=== PATIENT | female | born 1940 | race Caucasian/White ===

== ENCOUNTER 2017-09-08 08:04 | Outpatient (CLI) | payer MEDICARE | END 2017-09-08 08:05 | disposition home or self-care (01) | LOC: BICMAMMO 08:04 | PROVIDERS: ATTEND Internal Medicine | DX: Z53.9 Procedure and treatment not carried out, unspecified reason (principal) ==

== ENCOUNTER 2018-02-05 21:13 | Emergency (ER) | payer MEDICARE ==
[~2018-02-05 21:13] MED LIST: ISOVUE-370 76%-LOCM 1 ML ONE
[2018-02-05 22:18] LABS: #Eosinphils 0.1 thou/uL (0.0-0.7); #Lymphocytes 0.2 thou/uL (1.20-3.40); #Monocytes 0.3 thou/uL (0.11-0.59); #Neutrophils 6.3 thou/uL (1.40-6.50); %Basophils 0.5 % (0.0-1.0); %Eosinophils 0.9 % (0.0-10.0); %Lymphocytes 3.1 % (21.0-51.0); %Monocytes 3.9 % (0.0-10.0); %Neutrophils 91.6 % (42.0-75.0); Hemoglobin 15.2 g/dL (12.0-16.0); Mean Corpuscular HGB CONC 34.5 g/dL (32.0-36.0); Mean Corpuscular Hemoglobin 33.2 pg (27.0-31.0); Mean Corpuscular Volume 96.2 fl (81.0-99.0); Platelet Count 176 thou/uL (130-400); Red Blood Cell (RBC) Count 4.57 mill/uL (4.20-5.40); White Blood Cell (WBC) Count 6.8 thou/uL (4.8-10.8)
[2018-02-05] MEDS ORDERED: Metoclopramide HCl 10 MG/2 ML VIAL ONE (22:31)
[2018-02-05] MEDS ORDERED: diphenhydrAMINE 50 MG/ML VIAL ONE (22:31)
[2018-02-05 22:40] LABS: ALT (SGPT) 12 U/L (8-55); AST (SGOT) 19 U/L (5-34); Albumin 3.8 g/dL (3.4-4.8); Alkaline Phosphatase 96 U/L (40-150); Anion Gap 13 mmol/L (10-20); BUN (Urea Nitrogen) 16 mg/dL (9.8-20.1); Bilirubin, Total 2.4 mg/dL (0.2-1.2); Calc. Creatinine Clearance 0 mL/min (70-130); Calcium 9.4 mg/dL (7.8-10.44); Carbon Dioxide 25 mmol/L (23-31); Chloride 99 mmol/L (98-107); Estimated GFR-MDRD 57; Globulin 3.1 g/dL (2.4-3.5); Glucose 185 mg/dL (83-110); Magnesium 1.7 mg/dL (1.6-2.6); Protein, Total 6.9 g/dL (6.0-8.3); Sodium 133 mmol/L (136-145)
[2018-02-05 22:45] LABS: CKMB 0.4 ng/mL (0-6.6); Troponin I Less than 0.010 ng/mL (< 0.028)
--- NOTE | 2018-02-05 23:25 | CT ---
HISTORY: Diverticulitis. Difficulty walking. Vomiting and diarrhea since yesterday. Contrast enhanced CT images of the abdomen and pelvis is obtained after administration of IV contrast . The lung bases are unremarkable. No evidence of free intraperitoneal air seen. The liver and spleen are unremarkable. A tiny hiatal hernia is present. Some mild mesenteric fat stra nding is seen. There is also some mildly enlarged mesenteric lymph nodes present. The gallbladder is within normal limits. The pancreas and adrenal glands are unremarkable. The kidneys are unremarkable. Some mitral annular calcifications seen. No evidence of periaortic lymphadenopathy seen. Bilateral origin renal artery vascular calcifications seen. No dilated loops of small bowel seen. There is colonic diverticulosis without evidence of obvious diverticulitis. IMPRESSION: 1. Colonic diverticulosis. No evidence of bowel obstruction or ileus seen. 2. Mildly enlarged mesenteric lymph nodes and mesenteric fat stranding. POS: [facility]
[2018-02-06] MEDS ORDERED: Ondansetron ODT 8 MG TAB ONE (00:01)
[2018-02-06 00:33] LABS: Bilirubin Negative (Negative); Blood, Urine Negative (Negative); Clarity CLEAR (Clear); Glucose, Urine (Dipstick) Negative (Negative); Leukocyte Negative (Negative); Nitrite Negative (Negative); Protein, Urine (Dipstick) Negative (Neg-Trace); pH, Urine 5.5 (5.0-9.0)
[2018-02-06 00:39] LABS: Specific Gravity, Urine Greater than 1.060 (1.002-1.036)
--- NOTE | 2018-02-07 07:29 | RAD ---
AP VIEW CHEST 02/05/18 HISTORY: Nausea, vomiting. AP view chest demonstrates the lungs to be well aerated. Minimal pulmonary vascular congestion is see n. No evidence of effusions or pneumonia seen. IMPRESSION: Mild pulmonary vascular congestion, otherwise unremarkable AP view chest. POS: [facility]
== END 2018-02-06 02:03 | disposition home or self-care (01) ==
LOC: ERS 21:13
DX: E86.0 Dehydration (principal); R11.2 Nausea with vomiting, unspecified; G20 Parkinson's disease; E11.9 Type 2 diabetes mellitus without complications; E78.5 Hyperlipidemia, unspecified; I10 Essential (primary) hypertension; E11.43 Type 2 diabetes mellitus with diabetic autonomic (poly)neuropathy; K31.84 Gastroparesis; Z79.82 Long term (current) use of aspirin; Z79.4 Long term (current) use of insulin; Z79.899 Other long term (current) drug therapy
CPT/HCPCS: 36415; 51701; 71045; 74177; 80053; 81003; 82248; 82553; 83605; 83735; 83880; 84484; 85025; 87040; 87086; 87149; 93005; 96365; 96375; A4353; J1200; J2765

== ENCOUNTER 2018-05-04 14:44 | Outpatient (CLI) | payer MEDICARE ==
--- NOTE | 2018-05-04 17:01 | MRI ---
MRI BRAIN WITHOUT CONTRAST: 05/04/18 HISTORY: Gait disorder. Patient has Parkinson's. COMPARISON: None. TECHNIQUE: Brain MRI is performed without intravenous gadolinium administration. Multisequential and multiplanar imaging is performed. FINDINGS: No hemorrhage on the axial gradient echo sequence. Calvarium has a normal T1 marrow signal intensity. Midline brain parenchymal structures are unremarkable. No parenchymal mass, mass effect or midline shift. Brain volume is age appropriate. Cortical thomas-whi te matter differentiation is preserved. Ventricles and sulci are patent and symmetric. Central arteri al flow voids are maintained. Absent restricted diffusion. Minimal opacification of the inferior right mastoid air cells. Left mastoid air cells and the sinuses are adequately aerated. Minimal mucosal thickening of the right maxillary sinus. IMPRESSION: 1. Age appropriate atrophy. 2. Chronic small vessel ischemic change of the white matter are present. 3. Absence restricted diffusion. No acute infarct. 4. Minimal opacification of the inferior right mastoid air cells. POS: [facility]
== END 2018-05-04 14:45 | disposition home or self-care (01) ==
LOC: SCSMRI 14:44
PROVIDERS: ATTEND Psychiatry & Neurology Neurology
DX: R26.89 Other abnormalities of gait and mobility (principal); H74.8X1 Other specified disorders of right middle ear and mastoid
CPT/HCPCS: 70551

== ENCOUNTER 2018-07-01 15:16 | Emergency (ER) | payer MEDICARE ==
--- NOTE | 2018-07-01 16:31 | RAD ---
TWO VIEW CHEST: 07/01/18 HISTORY: Cough and congestion. COMPARISON: 01/25/13. The lungs appear clear of infiltrate. Vascular markings are within normal range. Heart size is upper normal but stable. Degenerative spine changes. the thoracic vertebra maintain height. IMPRESSION: No evidence of acute infiltrate. POS: [facility]
== END 2018-07-01 17:45 | disposition home or self-care (01) ==
LOC: SCSER 15:16
DX: J06.9 Acute upper respiratory infection, unspecified (principal); B30.9 Viral conjunctivitis, unspecified; E11.43 Type 2 diabetes mellitus with diabetic autonomic (poly)neuropathy; K31.84 Gastroparesis; E78.5 Hyperlipidemia, unspecified; I10 Essential (primary) hypertension; G20 Parkinson's disease; Z79.82 Long term (current) use of aspirin; Z79.899 Other long term (current) drug therapy; Z79.891 Long term (current) use of opiate analgesic
CPT/HCPCS: 71046

== ENCOUNTER 2019-09-19 22:22 | Inpatient (IN) | payer MEDICARE ==
[2019-09-19] MEDS ORDERED: niCARdipine 25 MG in Sodium Chloride 0.9% 250 ML 240 ML IVPB SCH (22:45)
[2019-09-19] MEDS ORDERED: fentaNYL Citrate/PF 2,000 MCG in Sodium Chloride 0.9% 60 ML IV SCH (22:51)
--- NOTE | 2019-09-19 23:16 | CT ---
EXAM: CT Brain WO Con PROVIDED CLINICAL HISTORY: Subdural hematoma COMPARISON: Examination performed earlier same date at [facility] FINDINGS: Redemonstration of acute right subdural hematoma, which appears larger than on comparison study. This measures about 14 mm in maximal thickness on the current exam. Mixed low density within this hemorrhage may reflect hyperacute hemorrhage. Shift of the midline structures by about 5 mm is redemo nstrated. There is mass effect upon the right lateral ventricle which was not present on the prior study. Increased density is seen adjacent to the tentorium right of midline may also reflect extra-axial hem orrhage. There is hyperdensity adjacent to the anterior falx inferiorly left of midline may reflect a small amount of subdural blood. Additional significant interval change with respect to the prior ex amination is not apparent. IMPRESSION: 1. Increasing acute/hyperacute right cerebral convexity subdural hematoma. Findings communicated to Maikol Kraus 11:12 PM 09/19/2019. 2. Smaller foci of extra-axial hemorrhage are suspected as described.
[2019-09-19 23:35] LABS: Actual Bicarbonate (HCO3a) 22.7 mEq/L (22-28); Analyzer IN Cardio ER; Base Excess (BEa) -1.5 mEq/L (-2.0 to +3.0); CO2 Tension 36.7 mmHg (35.0-45.0); Calcium, Ionized 1.16 mmol/L (1.12-1.30); Carboxyhemoglobin (COHb) 0.1 gm% (0.0-3.0); Hemoglobin (Hb) 15.2 g/dL (12.0-16.0); O2 Tension (PaO2) 79.6 mmHg (> 60.0); Potassium - ABG Lab 3.44 mmol/L (3.70-5.30); pH, Arterial 7.41 (7.35-7.45)
[2019-09-19 23:40] LABS: ALV-art Gradient 159.725 (0-20); Puncture Site RRA
[2019-09-20 00:09] LABS: INR-International Normal Ratio 1.1; PTT 27.4 SEC (22.9-36.1)
[2019-09-20] MEDS ORDERED: DISCONTINUE PREVIOUS NARCOTIC PAIN MEDICATIONS AND BENZODIAZEPINES FS SCH (00:25)
[2019-09-20] MEDS ORDERED: Propofol BOLUS 1,000 MG/100 ML VIAL IV PRN (00:25)
[2019-09-20] MEDS ORDERED: Fentanyl BOLUS 250 ML IVPB PRN (00:25)
[2019-09-20] MEDS ORDERED: Sodium Chloride 0.9% 20 ML ONE (00:44)
[2019-09-20] MEDS ORDERED: Lidocaine 0.5%/Epinephrine 1:200,000 50 ml Vial ONE (00:44)
[2019-09-20] MEDS ORDERED: Bacitracin Zinc Ointment 30 gm TUBE ONE (00:44)
[2019-09-20] MEDS ORDERED: Thrombin 5000 UNITS/5 ML VIAL ONE (00:44)
[2019-09-20] MEDS ORDERED: Fentanyl 100 MCG/2 ML VIAL ONE (00:50)
[2019-09-20] MEDS ORDERED: Mannitol 12.5 GM/50 ML IV SCH (01:00)
[2019-09-20] MEDS ORDERED: ADMIXTURE FEE IV SCH ×2 (01:00→01:15)
[2019-09-20] MEDS ORDERED: [UNRECOGNIZED DRUG - OTHER] IV SCH ×2 (01:00→01:15)
[2019-09-20] MEDS ORDERED: HUM PROTHROMBIN CPLX IV SCH ×2 (01:00→01:15)
[2019-09-20 01:57] LABS: #Eosinphils 0.2 thou/uL (0.0-0.7); #Monocytes 1.1 thou/uL (0.11-0.59); #Neutrophils 9.5 thou/uL (1.40-6.50); %Basophils 0.2 % (0.0-1.0); %Eosinophils 1.2 % (0.0-10.0); %Lymphocytes 15.3 % (21.0-51.0); %Monocytes 8.7 % (0.0-10.0); %Neutrophils 74.7 % (42.0-75.0); Hemoglobin 13.2 g/dL (12.0-16.0); Mean Corpuscular HGB CONC 35.6 g/dL (32.0-36.0); Mean Corpuscular Hemoglobin 33.7 pg (27.0-31.0); Mean Corpuscular Volume 94.8 fL (78.0-98.0); Mean Platelet Volume 8.7 fL (7.4-10.4); Platelet Count 172 thou/uL (130-400); Red Blood Cell (RBC) Count 3.92 mill/uL (4.20-5.40); White Blood Cell (WBC) Count 12.8 thou/uL (4.8-10.8)
[2019-09-20] MEDS ORDERED: Levofloxacin 500 mg/D5W 100 ml Premix Bag ONE (01:57)
[2019-09-20] MEDS ORDERED: Clindamycin/D5W 900 mg/50 ml Premix Bag ONE (01:57)
[2019-09-20 02:17] LABS: Anion Gap 15 mmol/L (10-20); BUN (Urea Nitrogen) 10 mg/dL (9.8-20.1); Calc. Creatinine Clearance 72 mL/min (70-130); Calcium 8.3 mg/dL (7.8-10.44); Carbon Dioxide 19 mmol/L (23-31); Chloride 100 mmol/L (98-107); Estimated GFR-MDRD 65; Glucose 312 mg/dL (83-110); Potassium 3.4 mmol/L (3.5-5.1); Sodium 131 mmol/L (136-145)
[2019-09-20] MEDS ORDERED: Mag-Al 1200 mg/1200 mg/30 ML UDCUP PO PRN (02:27)
[2019-09-20] MEDS ORDERED: Docusate 100 MG CAP PO PRN (02:27)
[2019-09-20] MEDS ORDERED: Bisacodyl 10 MG SUPP PR PRN (02:27)
[2019-09-20] MEDS ORDERED: Milk Of Magnesia 30 ML UDCUP PO PRN (02:27)
[2019-09-20] MEDS ORDERED: Sodium Chloride 0.9% 1,000 ML IV SCH ×2 (02:30→12:52)
[2019-09-20] MEDS ORDERED: levETIRAcetam In NaCl (Iso-Os) 1,000 MG in Premix Bag 1 BAG IVPB SCH (03:00)
--- NOTE | 2019-09-20 04:49 | HP ---
This is Gibran Hu PA-C dictating a report for Sean Hitchcock MD. This is a 50-minute initial patient evaluation, of which greater than 50% of the exam was spent in counseling and coordinating the patient's care. Remainder of the exam was spent in review of the patient's medical records, formulation of treatment plan, review of appropriate imaging studies. CHIEF COMPLAINT: Status post fall with acute on chronic subdural hematoma. HISTORY OF PRESENT ILLNESS: Ms. Boles is an 79-year-old female, who is a transfer from [facility] for the above complaints. Apparently, the patient is on Eliquis for history of atrial fibrillation. She has had some balance and walking difficulties and also has a history of normal-pressure hydrocephalus and has undergone a CONTRACT ADMINISTRATOR shunt placement by Dr. Guillermo Van in April 2019. Given her balance and gait disturbances, she has been in a wheelchair. Apparently, earlier tonight, the patient's was pushing her in the wheelchair when the wheelchair caught on something and the patient fell out of the wheelchair. She was subsequently brought to [facility], where she eventually became less responsive and was intubated. Again, given the acuity of her decline, the patient was transferred to [facility]. Repeat head CT was done and compared to the previous head CT and showed expansion of right frontal temporoparietal subdural hematoma. There was mass effect and midline shift on the repeat CT scan. The patient is unable to provide any type of history as she is intubated and her family helps to provide some history as well as review of her medical records. PHYSICAL EXAMINATION: The patient is E1 M5 V1 to make her GCS 17. Her pupils are equal and reactive bilaterally roughly 3 mm in size. She does not formally follow commands, though localizes on the right and withdraws from pain on the left. She does have a gag reflex present. IMPRESSION DIAGNOSIS: Status post fall with acute subdural hematoma, on Eliquis. PLAN: I have discussed the patient's case and imaging with Dr. Hitchcock and the decision was made after a very lengthy discussion of risks and benefits to proceed to the operating room for the patient to undergo a right frontal craniotomy with acute subdural evacuation. It should be noted that the patient's CONTRACT ADMINISTRATOR shunt setting is at 0.5, that originally was supposed to be at 1.5. This was reprogrammed intraoperatively back to 1.5. Nonetheless, Neurosurgery will admit the patient with appropriate medical consult given the emergent need to go to the operating room. We will follow along with the patient, but again plan to proceed with emergent subdural hematoma evacuation in the OR. Job ID: [id number] MTDD
[2019-09-20] MEDS ORDERED: Dextrose 50% Abboject 50 ML SYRINGE SLOW IVP PRN (07:39)
[2019-09-20] MEDS ORDERED: Dextrose 5% in Water 1,000 ML IV PRN (07:39)
--- NOTE | 2019-09-20 08:25 | CT ---
CT BRAIN WITHOUT CONTRAST: COMPARISON: 09/19/2019. HISTORY: Followup intracranial hemorrhage. TECHNIQUE: Multiple contiguous axial images were obtained in a CT of the brain without contrast. FINDINGS: There has been an interval craniotomy with evacuation of the majority of the right subdural hematoma. Pneumocephalus is seen in the operative bed. A right posterior FIRST AID NURSE shunt is seen with its tip in th e right lateral ventricle. A surgical drain is seen in the subdural space. A small amount of residu al blood is seen on the parietal convexity and temporal convexity. There is a small amount of blood in the posterior aspect of the lateral ventricles. No significant midline shift or downward herniati on is seen at this time. The paranasal sinuses and mastoid air cells are well aerated. IMPRESSION: 1. Interval evacuation of subdural hematoma, with the product of a small amount of residual blood. 2. There is a right posterior ventriculostomy catheter with its tip in the right lower ventricle. I nterval development of a small amount of intraventricular hemorrhage. POS: [facility]
[2019-09-20] MEDS ORDERED: FLU VACC TS2019-20(65YR UP)/PF 180 MCG/0.5 ML SYRINGE IM ONE (09:00)
[2019-09-20] MEDS: niCARdipine 50 MG in Sodium Chloride 0.9% 250 ML 230 ML IVPB SCH ×2 (10:31→15:56)
[2019-09-20] MEDS: Pantoprazole 40 MG VIAL IVP SCH (10:36)
[2019-09-20] MEDS: Clindamycin/D5W 900 MG in Premix Bag 1 BAG IVPB SCH ×2 (10:36→18:09)
[2019-09-20] MEDS ORDERED: PROPOFOL 200 MG/20 ML VIAL ONE (11:14)
[2019-09-20] MEDS ORDERED: Rocuronium Bromide 10 MG/ML (10ML VIAL) ONE (11:14)
[2019-09-20] MEDS: HumaLOG 300 UNITS/3 ML VIAL SC PRN ×3 (11:31→22:10)
--- NOTE | 2019-09-20 11:36 | PRG ---
DATE OF SERVICE: 09/20/2019 Ms. Boles is not even 12 hours out from her right-sided trauma craniotomy for supratentorial acute subdural hematoma evacuation. We also adjusted her right-sided Strata programmable shunt from 0.5 to 1.5 to try and promote brain expansion. Head CT this morning is satisfactory. I drained both in the subdural and subgaleal spaces, been effective in reducing reaccumulation. She remains intubated and does localize more briskly in her right side than her left, but we are now trying to wean off her propofol. I should note that she remains on high-dose nicardipine for hypertension. Job ID: [id number]
--- NOTE | 2019-09-20 12:21 | PDOC.HOSPP ---
- Subjective Encounter Date: 09/20/19 Encounter Time: 10:15 non-verbal Subjective: pt has mechanical fall, she was on elliquis, she was found with SDH, she underwent burhall evacuation, post procedure she is on ventilator, family bedside, we are consulted for medical management. - Objective Vital Signs & Weight: Vital Signs (12 hours) Temp Pulse Resp BP Pulse Ox 09/20/19 10:32 97 09/20/19 07:21 83 09/20/19 07:00 98.4 F 09/20/19 06:00 98.3 F 22 H 09/20/19 04:03 76 122/57 L 09/20/19 04:00 22 H 09/20/19 01:00 98.2 F 09/20/19 00:46 98 Weight Weight 206 lb 2.115 oz Most Recent Monitor Data Heart Rate from ECG 99 NIBP 125/56 NIBP BP-Mean 79 Respiration from ECG 21 SpO2 99 I&O: 09/19/19 09/20/19 09/21/19 06:59 06:59 06:59 Intake Total 974.3 Output Total 620 535 Balance 354.3 -535 Result Diagrams: 09/20/19 01:40 09/20/19 01:40 Additional Labs: Accuchecks 09/20/19 06:50 POC Glucose 381 H Radiology Reviewed by me: Yes (CT brain) EKG Reviewed by me: Yes (NSR) Hospitalist ROS - Review of Systems ROS unobtainable: due to endotracheal tube - Medication Medications: Active Medications Generic Name Dose Route Start Last Admin Trade Name Freq PRN Reason Stop Dose Admin Clindamycin Phosphate/Dextrose 50 mls @ 100 mls/hr 09/20/19 10:00 09/20/19 10 :36 900 mg/ Device IVPB 50 mls 0200,1000,1800 JED Administration Sodium Chloride 1,000 mls @ 50 mls/hr 09/20/19 02:30 09/20/19 03:15 Normal Saline 0.9% IV 1,000 mls .Q20H JED Administration Insulin Human Lispro 0 units 09/20/19 07:39 09/20/19 11:31 Humalog SC 10 units .MODERATE SLIDING SC PRN Administration Moderate Correctional Scale Pantoprazole Sodium 40 mg 09/20/19 09:00 09/20/19 10:36 Protonix IVP 40 mg DAILY JED Administration Sodium Chloride 10 ml 09/20/19 09:00 09/20/19 10:37 Flush - Normal Saline IVF 10 ml Q12HR JED Administration - Exam General Appearance: NAD Eye: anicteric sclera ENT - other findings: surgical site with dressing, drain in place Neck: no JVD, no thyromegaly, no lymphadenopathy Heart: RRR, no murmur, no gallops, no rubs Respiratory: CTAB, no wheezes, no rales, no ronchi Gastrointestinal: soft, non-distended, normal bowel sounds Extremities: no cyanosis, no clubbing, no edema Hosp A/P (1) Subdural hematoma Code(s): S06.5X9A - TRAUM SUBDR HEM W LOC OF UNSP DURATION, INIT Status: Acute (2) Acute respiratory failure with hypoxia Code(s): J96.01 - ACUTE RESPIRATORY FAILURE WITH HYPOXIA Status: Acute (3) Hyponatremia Code(s): E87.1 - HYPO-OSMOLALITY AND HYPONATREMIA Status: Acute (4) Hypokalemia Code(s): E87.6 - HYPOKALEMIA Status: Acute (5) Dyslipidemia Code(s): E78.5 - HYPERLIPIDEMIA, UNSPECIFIED Status: Chronic (6) Chronic anticoagulation Code(s): Z79.01 - JAIL (CURRENT) USE OF ANTICOAGULANTS Status: Chronic (7) PAF (paroxysmal atrial fibrillation) Code(s): I48.0 - PAROXYSMAL ATRIAL FIBRILLATION Status: Chronic (8) GERD (gastroesophageal reflux disease) Code(s): K21.9 - GASTRO-ESOPHAGEAL REFLUX DISEASE WITHOUT ESOPHAGITIS Status: Chronic Qualifiers: Esophagitis presence: without esophagitis Qualified Code(s): K21.9 - Gastro -esophageal reflux disease without esophagitis (9) Hypertension Code(s): I10 - ESSENTIAL (PRIMARY) HYPERTENSION Status: Chronic Qualifiers: Hypertension type: essential hypertension Qualified Code(s): I10 - Essential (primary) hypertension (10) Obesity (BMI 30-39.9) Code(s): E66.9 - OBESITY, UNSPECIFIED Status: Chronic (11) Diabetes type 2, controlled Code(s): E11.9 - TYPE 2 DIABETES MELLITUS WITHOUT COMPLICATIONS Status: Chronic Qualifiers: Diabetes mellitus long term care social worker insulin use: with long term care social worker use Diabetes mellitus complication status: without complication Qualified Code(s): E11.9 - Type 2 diabetes mellitus without complications; Z79.4 - [facility] (current) use of insulin - Plan old records reviewed/req, plan discussed w/ family 09/20/19 continue ventilator management as per pulmonary post operative care as per surgeon regarding diabetes, hyperglycemia protocol treatment started discussed with family bedside medication reviewed and continue to provide symptomatic treatment
[2019-09-20] MEDS ORDERED: Potassium Chloride 20 MEQ TAB PO SCH (13:15)
[2019-09-20] MEDS ORDERED: Magnesium Sulfate 4 GM in Sodium Chloride 0.9% 250 ML 250 ML IVPB SCH (13:15)
[2019-09-20] MEDS ORDERED: Insulin Glargine 20 UNITS in Pre-Filled Syringe SC SCH (13:15)
[2019-09-20] MEDS ORDERED: Carvedilol 6.25 MG TAB PO SCH (13:15)
[2019-09-20] MEDS ORDERED: Furosemide 40 MG/4 ML VIAL SLOW IVP SCH (13:15)
[2019-09-20] MEDS ORDERED: Lisinopril 5 MG TAB PO SCH (13:15)
[2019-09-20] MEDS ORDERED: Potassium Chloride 40 MEQ in Sodium Chloride 0.9% 250 ML 250 ML IVPB SCH (13:15)
[2019-09-20] MEDS ORDERED: Polyethylene Glycol 3350 17 GM Packet PER TUBE PRN (13:27)
[2019-09-20] MEDS: Carvedilol 6.25 MG TAB PO SCH (13:57)
[2019-09-20] MEDS ORDERED: Amiodarone HCl 150 MG in Dextrose 5% in Water 100 ML IVPB SCH (14:45)
--- NOTE | 2019-09-20 14:45 | OP ---
DATE OF PROCEDURE: 09/20/2019 CELLARS SUPERVISOR: Qiana Blackwell PA-C A modifier 57 should be added to this surgery as the decision to operate was made on the day I saw the patient. Ms. Boles is an 79-year-old woman, who fell out of her wheelchair today and was on Eliquis. She sustained a large acute subdural hematoma. This appears to be somewhat superimposed on a much smaller chronic subdural hematoma versus hygroma, not unusual to be seen following the shunting for normal-pressure hydrocephalus. The family wished that aggressive measures be taken and as such, we recommended craniotomy for acute subdural hematoma evacuation. As such we brought her emergently to the operating room. PRE-PROCEDURE DIAGNOSES: Large right acute subdural hematoma with midline shift, mass effect, neurologic decline. POSTPROCEDURE DIAGNOSES: Large right acute subdural hematoma with midline shift, mass effect, neurologic decline. PROCEDURE PERFORMED: Right frontotemporoparietal craniotomy for acute subdural hematoma evacuation. DESCRIPTION OF PROCEDURE: After informed consent was obtained from the patient's family, she was brought to the OR. Proper patient, pause, and identification were carried out. Her head was turned to the left and the right hemicranial region was sterilely cleansed, prepared, and draped following the clipping of hair. A question-praful incision was drawn out and the scalp reflected following sterile cleansing, preparation, and draping and opening of the wound. The temporalis muscle was reflected with it, keila holes were fashioned, bone flap turned via craniotomy. The dura was opened. Acute subdural hematoma was evacuated. I felt as if we had excellent decompression of the brain. Drains were placed in the subdural and subgaleal space. The bone flap was reapproximated and closed with titanium plates and screws and the wound closed in anatomic layers. The patient was kept intubated. Job ID: [id number]
--- NOTE | 2019-09-20 15:32 | CON ---
DATE OF CONSULTATION: 09/20/2019 SERVICE: Pulmonary Medicine. REASON FOR CONSULTATION: ICU patient. HISTORY OF PRESENT ILLNESS: The patient is an 79-year-old white female with past medical history significant for severe debility secondary to Parkinson disease. She is basically not able to do anything on her own. She is not independent in most of her ADLs. She requires assistance to do things like dress, get out of bed, and is not really ambulatory. She refuses to use a wheelchair, however. She has a walker with a seat on it and mandates that her family push her around in that device. Her was pushing her and came into contact with a curb. The device toppled over, and he landed on top of her. At that time, she was in her usual state of health. She was brought to the emergency department for evaluation because of altered mentation. The CT of the brain was consistent with subdural hematoma. She cannot provide any additional elements of the history as she is currently sedated and intubated. PAST MEDICAL HISTORY: 1. Parkinson disease. 2. Type 2 diabetes mellitus. 3. Gastroesophageal reflux disease. 4. Gastroparesis. 5. Diverticulosis. 6. Endometriosis. 7. Dyslipidemia. 8. Hypertension. 9. Dementia. PAST SURGICAL HISTORY: 1. Hemorrhoidectomy. 2. Endometriosis surgery. 3. Breast biopsy. 4. Colonoscopy. 5. EGD. 6. Appendectomy. 7. Right index finger surgery. 8. Bilateral cataract surgery. 9. Tonsillectomy. FAMILY HISTORY: Noncontributory. SOCIAL HISTORY: Negative for alcohol, tobacco, or illicit drug use. ALLERGIES: NO KNOWN DRUG ALLERGIES. MEDICATIONS: List of her inpatient medications was reviewed. No specific updates were made at this time. REVIEW OF SYSTEMS: This cannot be obtained as the patient is currently intubated and sedated. PHYSICAL EXAMINATION: VITAL SIGNS: Afebrile, pulse 99, blood pressure 139/46, respirations 22, saturation 97%, on 30% FiO2 and a PEEP of 5. GENERAL: The patient is intubated and sedated. HEENT: Normocephalic and atraumatic. Sclerae white. Conjunctivae pink. Oral mucosa is moist without lesions. LUNGS: Crackly. No prolonged expiratory phase or wheezing is appreciated. HEART: Normal rate, regular. ABDOMEN: Soft, nontender, and nondistended. Bowel sounds are positive. MUSCULOSKELETAL: No cyanosis or clubbing. Diffuse 1 to 2+ pitting is present throughout. NEUROLOGIC: The patient withdraws from noxious stimuli in all 4 extremities. Her pupils are equal, round, and reactive, and she has a very strong drive to breathe. At this point, she is under the influence of a little sedation and is not following any commands. LABORATORY DATA: WBC 12.8, hemoglobin 13.2, and platelets 172,000. INR 1.1. PH 7.41, pCO2 of 37, PO2 of 80. Sodium 131 and significantly downtrending, potassium 3.4. Basic metabolic profile is otherwise unremarkable. Leukocyte esterase is positive. There are some white blood cells, and 4+ bacteria. Previous MATT was abnormal. IMAGING: CT of the head demonstrates status post craniotomy and evacuation of hematoma. An external ventricular drain is also in place. ASSESSMENT: 1. Acute hypoxic respiratory failure. 2. Traumatic subdural hematoma, status post craniotomy and evacuation with external ventricular drain in place, postop day 1. 3. Parkinson disease with dementia. 4. Debility, advanced. DISCUSSION AND PLAN: I will hold the sedation. We will give her a spontaneous breathing trial. If she meets neurologic criteria, extubation will be considered. I will check her electrolytes tomorrow morning and replace potassium today. IV fluids will be interrupted, and I will provide her with a dose of Lasix as she is significantly volume up. CRITICAL CARE TIME: 30 minutes. Job ID: [id number] MTDD
[2019-09-20] MEDS: Amiodarone HCl 450 MG in Dextrose 5% in Water 250 ML IVPB SCH (15:56)
[2019-09-20] MEDS: Lisinopril 5 MG TAB PO SCH (20:38)
[2019-09-20] MEDS ORDERED: levETIRAcetam 500 MG in Sodium Chloride 0.9% 100 ML IVPB SCH (21:00)
[2019-09-20] MEDS: Propofol 1,000 MG/100 ML VIAL IV PRN (22:04)
[2019-09-21] MEDS: Acetaminophen 325 MG TAB PO PRN ×2 (00:39→09:27)
[2019-09-21] MEDS: Amiodarone HCl 450 MG in Dextrose 5% in Water 250 ML IVPB SCH ×2 (01:04→15:48)
[2019-09-21] MEDS: Clindamycin/D5W 900 MG in Premix Bag 1 BAG IVPB SCH ×3 (01:05→17:37)
[2019-09-21 03:38] LABS: #Lymphocytes 0.9 thou/uL (1.20-3.40); #Monocytes 1.3 thou/uL (0.11-0.59); #Neutrophils 8.1 thou/uL (1.40-6.50); %Basophils 0.3 % (0.0-1.0); %Eosinophils 0.1 % (0.0-10.0); %Lymphocytes 8.3 % (21.0-51.0); %Monocytes 12.6 % (0.0-10.0); %Neutrophils 78.7 % (42.0-75.0); Hemoglobin 12.2 g/dL (12.0-16.0); Mean Corpuscular HGB CONC 34.2 g/dL (32.0-36.0); Mean Corpuscular Volume 93.5 fL (78.0-98.0); Mean Platelet Volume 9.3 fL (7.4-10.4); Platelet Count 171 thou/uL (130-400); RBC Distribution Width 12.4 % (11.5-14.5); White Blood Cell (WBC) Count 10.2 thou/uL (4.8-10.8)
[2019-09-21 03:43] LABS: Hemoglobin A1c 8.5 % (4.0-6.0)
[2019-09-21 04:01] LABS: ALT (SGPT) 23 U/L (8-55); AST (SGOT) 17 U/L (5-34); Albumin 3.2 g/dL (3.4-4.8); Alkaline Phosphatase 68 U/L (40-110); Anion Gap 14 mmol/L (10-20); BUN (Urea Nitrogen) 15 mg/dL (9.8-20.1); Bilirubin, Total 1.7 mg/dL (0.2-1.2); Calc. Creatinine Clearance 47 mL/min (70-130); Calcium 8.4 mg/dL (7.8-10.44); Carbon Dioxide 19 mmol/L (23-31); Chloride 108 mmol/L (98-107); Estimated GFR-MDRD 36; Globulin 2.7 g/dL (2.4-3.5); Glucose 273 mg/dL (83-110); Potassium 3.7 mmol/L (3.5-5.1); Protein, Total 5.9 g/dL (6.0-8.3); Sodium 137 mmol/L (136-145)
--- NOTE | 2019-09-21 07:29 | PRG ---
DATE OF SERVICE: 09/21/2019 SERVICE: Pulmonary Medicine. INTERVAL HISTORY: Overnight, the patient had some rhythmic jerking spells that only involved her left face. They were short-lived. She is nonresponsive for the most part. She cannot provide any additional elements of the history. She had a low-grade temperature last night, and oxygen requirements and heart rate have both crept up overnight. Otherwise, there has been no interval change to her condition. PHYSICAL EXAMINATION: VITAL SIGNS: Afebrile, pulse 103, blood pressure 131/40, respirations 29, saturation 95%, currently on room air. GENERAL: The patient is intubated. She is on some sedation. HEENT: Normocephalic. The head is wrapped. Subdural drains are in place. HEART: Normal rate. Regular. LUNGS: Decent air entry. There is no prolonged expiratory phase. Extensive rhonchi are present, but no wheezing or crackles are appreciated. HEART: Tachycardic. Regular. ABDOMEN: Soft, nontender, nondistended. Bowel sounds are positive. MUSCULOSKELETAL: No cyanosis or clubbing. There is trace pitting in the bilateral lower extremities. NEUROLOGIC: She has some withdrawal in the bilateral lower extremities with noxious stimuli, though this just may be an exaggerated crossed extensor reflex. With noxious stimuli to the upper extremities, she does not move. Pupillary response is present with light, and she overbreathes the ventilator comfortably. She does not have a cough or gag with stimulation. She does not. She does not spontaneously open her eyes, or attend. LABORATORY DATA: WBC 10.2, hemoglobin 12.2, platelets 171,000. Creatinine 1.39 and gently uptrending. Basic metabolic profile is otherwise unremarkable. Total bilirubin 1.7. DISCUSSION AND PLAN: 1. Acute hypoxic respiratory failure. 2. Traumatic subdural hematoma, status post craniotomy and evacuation with external drain in place, postop day 2. 3. Parkinson disease with dementia. 4. Debility, advanced. DISCUSSION AND PLAN: Lasix will be interrupted. We will get a respiratory culture as she has significant secretions there. For the rhythmic jerking of the left face, we will get an EEG to make certain she is not having any seizure activity. Palliative Care consultation will be placed, this patient is unlikely to make any meaningful recovery. Even under the best of circumstances, she was completely unable to participate with physical therapy. As such, moving forward with aggressive care maybe a moot point. We will discuss this with the family through time. Critical Care will follow. CRITICAL CARE TIME: 30 minutes. Job ID: [id number]
[2019-09-21] MEDS ORDERED: Lactated Ringer's 500 ML IV SCH (07:30)
[2019-09-21] MEDS: Lorazepam 2 MG/ML VIAL SLOW IVP SCH ×3 (07:30→13:56)
[2019-09-21] MEDS: Lorazepam 2 MG/ML VIAL SLOW IVP PRN ×2 (07:46→13:02)
[2019-09-21] MEDS ORDERED: SODIUM CHLORIDE 0.9% IVPB SCH (08:15)
[2019-09-21] MEDS ORDERED: FOSPHENYTOIN SODIUM IVPB SCH (08:15)
[2019-09-21] MEDS: Sodium Chloride 0.9% 1,000 ML IV SCH (09:00)
[2019-09-21] MEDS ORDERED: Furosemide 40 MG/4 ML VIAL SLOW IVP SCH (09:00)
[2019-09-21] MEDS: Glimepiride 4 MG TAB PO SCH (09:24)
[2019-09-21] MEDS: Carvedilol 6.25 MG TAB PO SCH ×2 (09:24→16:33)
[2019-09-21] MEDS: Lisinopril 5 MG TAB PO SCH ×2 (09:26→21:30)
[2019-09-21] MEDS: Insulin Glargine 20 UNITS in Pre-Filled Syringe SC SCH (09:26)
[2019-09-21] MEDS: Pantoprazole 40 MG VIAL IVP SCH (09:27)
--- NOTE | 2019-09-21 09:42 | CT ---
CT BRAIN WITHOUT CONTRAST: HISTORY: Intracerebral hemorrhage. Seizures. FINDINGS: No significant interval changes seen since the exam of the previous day. POS: [facility]
--- NOTE | 2019-09-21 10:17 | ULT ---
EXAM: Bilateral lower extremity venous Doppler US HISTORY: bilateral lower extremity edema and impaired mobility, recent surgery FINDINGS: Grayscale, color-flow, Doppler evaluation, spectral analysis of the bilateral lower extremities venou s structures is performed with 2-D imaging. The bilateral common femoral, superficial femoral, popliteal, posterior tibial, proximal greater saphenous and profunda femoral veins are imaged. There is normal luminal compressibility, flow, and augmentation in the visualized deep venous structu res of the bilateral lower extremities. IMPRESSION: No evidence of a deep vein thrombosis in either lower extremity.
--- NOTE | 2019-09-21 10:25 | PRG ---
DATE OF SERVICE: 09/21/2019 Ms. Boles is now postoperative day #2 from right-sided frontotemporal craniotomy for acute subdural hematoma evacuation and readjustment of her ventriculoperitoneal shunt from 0.5 to 1.5. This morning, her head CT remained satisfactory. Her subdural drain output has become mostly serous and as such, we will remove that given the higher output and her head CT demonstrating no worrisome reaccumulation of blood. She was on Eliquis preoperatively. Unfortunately, despite prophylactic levetiracetam and not at all unusual in this situation given the patient's poor prognosis and age, she has developed now seizures involving her mouth with left gaze deviation, consistent again with a right hemispheric seizure. I have aborted these at this point with levetiracetam and we will load her with 20 mg/kg of fosphenytoin and I continued 300 mg nightly of fosphenytoin. We will discontinue her Keppra. We will obtain an ultrasound of the lower extremities as well. She remains with poor prognosis given her age and premorbid condition of dementia. I have discussed her care with Dr. Melara. Job ID: [id number]
[2019-09-21] MEDS ORDERED: levETIRAcetam 500 MG/100 ML PREMIX BAG ONE (10:53)
--- NOTE | 2019-09-21 12:06 | PDOC.HOSPP ---
- Subjective Encounter Date: 09/21/19 Encounter Time: 07:00 Subjective: pt is on vent, she had seizure today, loaded with dilantin, no overall improvement seen - Objective Vital Signs & Weight: Vital Signs (12 hours) Temp Pulse Resp BP 09/21/19 11:28 93 115/39 L 09/21/19 09:26 116 H 133/42 L 09/21/19 09:24 132/44 L 09/21/19 07:55 111 H 130/41 L 09/21/19 06:00 29 H 09/21/19 04:18 102 H 09/21/19 04:00 99.1 F 31 H 09/21/19 02:00 29 H Weight Weight 206 lb 2.115 oz Most Recent Monitor Data Heart Rate from ECG 103 NIBP 121/43 NIBP BP-Mean 69 Respiration from ECG 29 SpO2 95 I&O: 09/20/19 09/21/19 09/22/19 06:59 06:59 06:59 Intake Total 974.3 1585 Output Total 620 2880 Balance 354.3 -1295 Result Diagrams: 09/21/19 03:18 09/21/19 03:30 Additional Labs: Accuchecks 09/20/19 09/20/19 09/20/19 22:10 18:12 11:26 POC Glucose 278 H 354 H 400 H Radiology Reviewed by me: Yes EKG Reviewed by me: Yes Hospitalist ROS - Review of Systems ROS unobtainable: due to endotracheal tube - Medication Medications: Active Medications Generic Name Dose Route Start Last Admin Trade Name Freq PRN Reason Stop Dose Admin Acetaminophen 650 mg 09/20/19 02:27 09/21/19 09:27 Tylenol PO 650 mg Q6H PRN Administration Fever > 101 or Headache Carvedilol 12.5 mg 09/20/19 17:00 09/21/19 09:24 Coreg PO 12.5 mg BID-WM JED Administration Glimepiride 4 mg 09/21/19 07:30 09/21/19 09:24 Amaryl PO 4 mg DAILY-AC JED Administration Clindamycin Phosphate/Dextrose 50 mls @ 100 mls/hr 09/20/19 10:00 09/21/19 09 :49 900 mg/ Device IVPB 50 mls 0200,1000,1800 JED Administration Levofloxacin 750 mg/ Device 150 mls @ 100 mls/hr 09/21/19 02:00 09/21/19 01: 04 IVPB 150 mls Q24HR JED Administration Levetiracetam 500 mg/ Device 100 mls @ 200 mls/hr 09/20/19 21:00 09/21/19 09: 26 IVPB 100 mls BID JED Administration Nicardipine HCl 50 mg/ Sodium 250 mls @ 0 mls/hr 09/20/19 09:45 09/20/19 15: 56 Chloride IVPB 250 mls INF JED Administration Protocol Titrate Insulin Glargine 20 units/ 0.2 mls @ 0 mls/hr 09/21/19 09:00 09/21/19 09:26 Miscellaneous Medication SC 0.2 mls DAILY JED Administration Amiodarone HCl 450 mg/ 259 mls @ 0 mls/hr 09/20/19 14:45 09/21/19 01:04 Miscellaneous Medication 1 IVPB 259 mls each/ Dextrose/Water INF JED Administration Protocol As Directed Sodium Chloride 1,000 mls @ 50 mls/hr 09/21/19 07:19 09/21/19 09:00 Normal Saline 0.9% IV 1,000 mls .Q20H JED Administration Insulin Human Lispro 0 units 09/20/19 07:39 09/20/19 22:10 Humalog SC 6 units .MODERATE SLIDING SC PRN Administration Moderate Correctional Scale Lisinopril 5 mg 09/20/19 21:00 09/21/19 09:26 Zestril PO 5 mg BID JED Administration Lorazepam 2 mg 09/20/19 00:25 09/21/19 07:46 Ativan SLOW IVP 10/20/19 00:25 2 mg Q1H PRN Administration Breakthrough agitation Pantoprazole Sodium 40 mg 09/20/19 09:00 09/21/19 09:27 Protonix IVP 40 mg DAILY JED Administration Propofol 1,000 mg 09/20/19 00:25 09/20/19 22:04 Diprivan IV 10/20/19 00:25 1,000 mg INF PRN Administration TO ACHIEVE GOAL RASS Protocol Sodium Chloride 10 ml 09/20/19 09:00 09/21/19 09:27 Flush - Normal Saline IVF 10 ml Q12HR JED Administration - Exam General Appearance: NAD Eye: anicteric sclera Eye - other findings: left gaze ENT: normocephalic atraumatic Neck: supple, symmetric, no JVD Heart: RRR, no murmur, no gallops, no rubs Heart - other findings: tachycardia Respiratory: CTAB, no wheezes, no rales, no ronchi Gastrointestinal: soft, non-distended, normal bowel sounds Extremities: no cyanosis, no clubbing, no edema Hosp A/P (1) Subdural hematoma Code(s): S06.5X9A - TRAUM SUBDR HEM W LOC OF UNSP DURATION, INIT Status: Acute (2) Acute respiratory failure with hypoxia Code(s): J96.01 - ACUTE RESPIRATORY FAILURE WITH HYPOXIA Status: Acute (3) Hyponatremia Code(s): E87.1 - HYPO-OSMOLALITY AND HYPONATREMIA Status: Acute (4) Hypokalemia Code(s): E87.6 - HYPOKALEMIA Status: Acute (5) Dyslipidemia Code(s): E78.5 - HYPERLIPIDEMIA, UNSPECIFIED Status: Chronic (6) Chronic anticoagulation Code(s): Z79.01 - SENIOR LIVING (CURRENT) USE OF ANTICOAGULANTS Status: Chronic (7) PAF (paroxysmal atrial fibrillation) Code(s): I48.0 - PAROXYSMAL ATRIAL FIBRILLATION Status: Chronic (8) GERD (gastroesophageal reflux disease) Code(s): K21.9 - GASTRO-ESOPHAGEAL REFLUX DISEASE WITHOUT ESOPHAGITIS Status: Chronic Qualifiers: Esophagitis presence: without esophagitis Qualified Code(s): K21.9 - Gastro -esophageal reflux disease without esophagitis (9) Hypertension Code(s): I10 - ESSENTIAL (PRIMARY) HYPERTENSION Status: Chronic Qualifiers: Hypertension type: essential hypertension Qualified Code(s): I10 - Essential (primary) hypertension (10) Obesity (BMI 30-39.9) Code(s): E66.9 - OBESITY, UNSPECIFIED Status: Chronic (11) Diabetes type 2, controlled Code(s): E11.9 - TYPE 2 DIABETES MELLITUS WITHOUT COMPLICATIONS Status: Chronic Qualifiers: Diabetes mellitus penitentiary insulin use: with adjunct faculty for medical terminology use Diabetes mellitus complication status: without complication Qualified Code(s): E11.9 - Type 2 diabetes mellitus without complications; Z79.4 - senior care (current) use of insulin - Plan old records reviewed/req 09/20/19 continue ventilator management as per pulmonary post operative care as per surgeon regarding diabetes, hyperglycemia protocol treatment started discussed with family bedside medication reviewed and continue to provide symptomatic treatment 09/21/19 loaded with dilantin, due to clindamycin with dex solution her blood sugar remains high, continue to titrate insulin, prognosis gaurded, vent per pulmonary, neurosurgery following
[2019-09-21] MEDS: HumaLOG 300 UNITS/3 ML VIAL SC PRN ×3 (12:08→23:12)
--- NOTE | 2019-09-21 12:55 | PDOC.PALCO ---
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 09/20/19 patient was leaving a restaurant with her , they use a rolling walker secondary to patient instability and unsteady gait. Patient was transitioning down the wheelchair ramp backward with her holding on navigating when at the base of the ramp patient fell backward, hitting her head. She was transported to [facility] and had decline with decrease in responsiveness and required intubation for maintaining airway. Transferred to [facility] and right frontal craniotomy with acute subdural evacuation. Patient transferred to the CCU after surgery. - Social History Smoking Status: Never smoker Smoking: no tobacco exposure Alcohol Use: none Drug Use History: none Living Situation: ( for 60 years) - Medications MAR Reviewed: Yes - Allergies Allergies/Adverse Reactions: Allergies Allergy/AdvReac Type Severity Reaction Status Date / Time amoxicillin Allergy Verified 09/20/19 06:43 cephalexin Allergy Verified 09/20/19 06:43 - Subjective Intubated, currently with seizure activity. Family at bedside - ROS Non Response: due to endotracheal tube, due to mental status - Objective Vital Signs: Vital Signs - Most Recent Temp Pulse Resp BP Pulse Ox 99.1 F 93 29 H 115/39 L 96 09/21/19 04:00 09/21/19 11:28 09/21/19 06:00 09/21/19 11:28 09/20/19 18:55 Palliative Performance Scale: 20 - Physical Exam Constitutional: encephalitic, ill appearing HEENT: moist MMs Deviation from normal: mechanical ventilation Cardiovascular: no significant murmur, RRR Gastrointestinal: positive bowel sounds Genitourinary: stark catheter Musculoskeletal: edema present Deviation from normal: No purposeful movement to extremities Skin: cap refill <2 seconds, fragile Deviation from normal: encephalopathic - Problem List (1) Palliative care encounter Code(s): Z51.5 - ENCOUNTER FOR PALLIATIVE CARE Current Visit: Yes Status: Acute (2) Debility Code(s): R53.81 - OTHER MALAISE Current Visit: Yes Status: Acute (3) Acute respiratory failure with hypoxia Code(s): J96.01 - ACUTE RESPIRATORY FAILURE WITH HYPOXIA Current Visit: Yes Status: Acute (4) Subdural hematoma Code(s): S06.5X9A - TRAUM SUBDR HEM W LOC OF UNSP DURATION, INIT Current Visit : Yes Status: Acute - Plan/Recommendations Plan: Met with patient son and nephew initially, gained history of current and recent health associated conditions. Met with at length, he provided a life review, they traveled world wide and she loves football and basketball, they frequent many games. He states that he feels guilty in relation to her mechanical fall. Support provided, and reviewed her fragile state and need for constant assistance, that she had many frequent falls over the past few years. ASked him what he would say if it was his son or nephew who was with her when the fall occured, he states that it would not have been their fault. Suggested he offer himself the same perspective to himself. was asked if he and Mrs Boles had ever discussed any wishes in relation to health care, he states no. * Will follow up and discuss resuscitation measures as well as identify goals of care [90] minutes spent on this encounter with >50% of the time in counseling and coordination of care. Thank you for this very appropriate consult.
[2019-09-21] MEDS: Propofol 1,000 MG/100 ML VIAL IV PRN (14:42)
[2019-09-21] MEDS: Acetaminophen 650 MG Suppository PR PRN ×2 (15:05→21:31)
[2019-09-21] MEDS: Morphine 2 MG/ML SYRINGE SLOW IVP PRN ×2 (16:06→21:31)
[2019-09-21] MEDS: Labetalol HCl 100 MG/20 ML VIAL SLOW IVP PRN (16:07)
--- NOTE | 2019-09-21 16:38 | EKG ---
Test Reason : Blood Pressure : / mmHG Vent. Rate : 091 BPM Atrial Rate : 091 BPM P-R Int : 140 ms QRS Dur : 090 ms QT Int : 406 ms P-R-T Axes : 268 054 067 degrees QTc Int : 499 ms Unusual P axis, possible ectopic atrial rhythm Nonspecific ST abnormality Prolonged QT Abnormal ECG When compared with ECG of 05-FEB-2018 21:22, Ectopic atrial rhythm has replaced Sinus rhythm Confirmed by DR. Sisi ROSSI ([id number]) on 09/21/2019 4:38:49 PM Referred By: MICHAEL Confirmed By:DR. Sisi ROSSI
[2019-09-21] MEDS ORDERED: Fosphenytoin Sodium 100 MG in Sodium Chloride 0.9% 50 ML IVPB SCH (21:00)
[2019-09-22] MEDS: Clindamycin/D5W 900 MG in Premix Bag 1 BAG IVPB SCH ×3 (01:39→16:54)
[2019-09-22] MEDS: Labetalol HCl 100 MG/20 ML VIAL SLOW IVP PRN ×2 (01:40→05:15)
[2019-09-22] MEDS: HumaLOG 300 UNITS/3 ML VIAL SC PRN ×4 (05:14→22:11)
[2019-09-22] MEDS: Amiodarone HCl 450 MG in Dextrose 5% in Water 250 ML IVPB SCH (06:47)
[2019-09-22] MEDS ORDERED: Lorazepam 2 MG/ML VIAL SLOW IVP SCH (07:30)
[2019-09-22] MEDS: Glimepiride 4 MG TAB PO SCH (08:35)
[2019-09-22] MEDS: Carvedilol 6.25 MG TAB PO SCH ×2 (08:35→16:25)
[2019-09-22] MEDS: Lisinopril 5 MG TAB PO SCH ×2 (08:35→20:21)
[2019-09-22] MEDS: Insulin Glargine 20 UNITS in Pre-Filled Syringe SC SCH (08:36)
[2019-09-22] MEDS: Pantoprazole 40 MG VIAL IVP SCH (08:37)
[2019-09-22] MEDS: Sodium Chloride 0.9% 1,000 ML IV SCH (08:37)
[2019-09-22] MEDS: Acetaminophen 650 MG Suppository PR PRN (08:38)
--- NOTE | 2019-09-22 10:12 | RAD ---
XR Chest 1 View Portable HISTORY: Respiratory failure, fever COMPARISON: 07/01/2018 FINDINGS: There is an endotracheal tube with tip at the level of the clavicular heads. Nasogastric tu be can be traced into the stomach. The heart size normal. There are opacities in the left mid and lower lung zones. No pneumothoraces or large effusions are identified.
--- NOTE | 2019-09-22 10:14 | PRG ---
DATE OF SERVICE: SERVICE: Pulmonary Medicine. INTERVAL HISTORY: The patient is doing poorly from a mentation standpoint. Whenever her sedation is held, she has seizure-like activity. We have once again increased her medication. She cannot provide any additional elements of the history. We are going to initiate tube feeds today. She had a fever overnight and is putting out significant purulent sputum out of her ET tube. PHYSICAL EXAMINATION: VITAL SIGNS: T-max 102.5, pulse 86, blood pressure 113/41, respirations 22, and saturation 92%, currently on 40% FiO2 and a PEEP of 5. GENERAL: The patient is intubated and sedated. HEENT: Normocephalic. Trauma is present. Her head is wrapped. LUNGS: Good air entry. There is extensive rhonchi present, but no prolonged expiratory phase or wheezing is appreciated. HEART: Normal rate and regular. ABDOMEN: Soft, nontender, and nondistended. Bowel sounds are positive. MUSCULOSKELETAL: No cyanosis or clubbing. No pitting in the bilateral lower extremities. LABORATORY DATA: WBC 10.2 and downtrending, hemoglobin 12.2, and platelets 171, 000. INR 1.1. PH of 7.41, pCO2 of 36, pO2 of 95. Creatinine 1.39, which is up trending. Basic metabolic profile is otherwise unremarkable. Total bilirubin is 1.7. Liver function studies are otherwise unremarkable. Blood glucose ranges from 156 to 278. Hemoglobin A1c 8.5. Phenytoin level 8.9. Respiratory cultures unremarkable. IMAGIN. Ultrasound of bilateral lower extremities demonstrates no evidence of a DVT. 2. CT brain demonstrates no significant interval change compared to prior. ASSESSMENT: 1. Acute hypoxic respiratory failure. 2. Community-acquired pneumonia. 3. Status epilepticus. 4. Traumatic subdural hematoma, status post craniotomy and evacuation with external drain in place, postop day 3. 5. Parkinson disease with dementia. 6. Debility, advanced at baseline. DISCUSSION AND PLAN: The patient is having fevers. We will do blood cultures x2, urine culture. We did sputum yesterday. She is on good antibiotic coverage for community-acquired organism with aspiration coverage as well. We will initiate tube feeds today. This patient has essentially no chance of functional recovery. We will continue palliative care discussion with the family. If they are adamant that we press forward, tracheostomy and PEG tube will need to be pursued in the near future. Critical care time: 30 minutes. Job ID: [id number] MTDD
[2019-09-22 10:15] LABS: Anion Gap 12 mmol/L (10-20); BUN (Urea Nitrogen) 20 mg/dL (9.8-20.1); Calc. Creatinine Clearance 56 mL/min (70-130); Calcium 7.9 mg/dL (7.8-10.44); Carbon Dioxide 21 mmol/L (23-31); Chloride 108 mmol/L (98-107); Estimated GFR-MDRD 44; Glucose 150 mg/dL (83-110); Potassium 3.6 mmol/L (3.5-5.1); Sodium 137 mmol/L (136-145)
--- NOTE | 2019-09-22 10:18 | PRG ---
DATE OF SERVICE: 09/22/2019 Ms. Boles is hospital day #2 following right-sided acute subdural hematoma evacuation. The subdural drain was removed yesterday. Two postoperative CTs have been satisfactory. She has now been loaded with fosphenytoin . Her fosphenytoin level is 8.9, and as such, we will give her another 500 mg and continue maintenance dose of 300 mg nightly, we will give her another dose of 500 mg IV now, and 300 mg nightly. She is also on levetiracetam. Her seizures for the most part significantly reduced involving the face, but still remain to a degree. Her subgaleal drain remains intact. She localizes in the four extremities, but her prognosis remains quite poor. Job ID: [id number]
[2019-09-22 10:31] LABS: White Blood Cell (WBC) Count 5.4 thou/uL (4.8-10.8)
[2019-09-22 10:58] LABS: Hemoglobin 10.1 g/dL (12.0-16.0); Mean Corpuscular HGB CONC 33.1 g/dL (32.0-36.0); Mean Corpuscular Hemoglobin 31.4 pg (27.0-31.0); Mean Corpuscular Volume 94.7 fL (78.0-98.0); Mean Platelet Volume 10.1 fL (7.4-10.4); Platelet Count 128 thou/uL (130-400); RBC Distribution Width 12.3 % (11.5-14.5); Red Blood Cell (RBC) Count 3.23 mill/uL (4.20-5.40)
[2019-09-22 11:04] LABS: Band 37 % (5-11); Lymphocytes 25 % (21-51); MDiff Complete? YES; Monocytes 5 % (0-10); Neutrophil 33 % (42-75); Platelet Morphology Comment Appears Decreased; Polychromasia SLIGHT = 2-3 cells (100X) (0-2/hpf)
[2019-09-22] MEDS: Micafungin 100 MG in Sodium Chloride 0.9% 100 ML IVPB SCH (11:07)
--- NOTE | 2019-09-22 12:37 | PDOC.PALPN ---
Palliative Progress Note - Subjective Day two of right sided subdural hematoma, one drain was removed yesterday. Febrile overnight and urine culture sent, currently on abx for pneumonia. Remains with mechanical ventilation and sedation, seizure activity. - Objective Vital Signs: Vital Signs - Most Recent Temp Pulse Resp BP Pulse Ox 98.9 F 77 25 H 154/44 H 94 L 09/22/19 11:00 09/22/19 10:38 09/22/19 12:00 09/22/19 08:35 09/22/19 08:00 - Physical Exam Constitutional: encephalitic, ill appearing HEENT: moist MMs, sclera anicteric Respiratory: no wheezing Deviation from normal: adventicious, purulent sputum suctioned, mechanical ventilation Cardiovascular: RRR Gastrointestinal: non-tender, positive bowel sounds Genitourinary: stark catheter Musculoskeletal: pulses present, edema present Deviation from normal: No purposeful movement. Skin: bruising, fragile - Assessment (1) Palliative care encounter Code(s): Z51.5 - ENCOUNTER FOR PALLIATIVE CARE Current Visit: Yes Status: Acute (2) Debility Code(s): R53.81 - OTHER MALAISE Current Visit: Yes Status: Acute (3) Acute respiratory failure with hypoxia Code(s): J96.01 - ACUTE RESPIRATORY FAILURE WITH HYPOXIA Current Visit: Yes Status: Acute (4) Subdural hematoma Code(s): S06.5X9A - TRAUM SUBDR HEM W LOC OF UNSP DURATION, INIT Current Visit : Yes Status: Acute - Plan Plan: Lengthy conversation with patient and family. Discussed the following: *Guarded condition /fever/ pneumonia/seizure activity *Goal of care, introduced consideration of PEG Trach in the future if they decide aggressive management *Again reviewed health history and decline over past years *Revisited resuscitation status *Therapeutic listening and emotional support Continued to reinforce with the how fortunate Mrs Boles was as he provided such care to her over their 62 year marriage, and especially the past few years as her health has declined. [90] minutes spent on this encounter with >50% of the time in counseling and coordination of care. - ROS Non Response: due to endotracheal tube, due to mental status
--- NOTE | 2019-09-22 13:09 | PDOC.HOSPP ---
- Subjective Encounter Date: 09/22/19 Encounter Time: 10:00 Subjective: No response to painful stimulus.. Keeps her eyes closed.. - Objective Vital Signs & Weight: Vital Signs (12 hours) Temp Pulse Resp BP Pulse Ox 09/22/19 12:00 25 H 09/22/19 11:00 98.9 F 09/22/19 10:38 77 09/22/19 10:00 20 09/22/19 08:35 84 112/49 L 09/22/19 08:00 101.1 F H 24 H 94 L 09/22/19 07:31 84 09/22/19 06:00 28 H 09/22/19 05:15 84 154/44 H 09/22/19 04:00 100.4 F H 22 H 09/22/19 03:00 81 09/22/19 02:00 30 H 09/22/19 01:40 87 154/47 H Weight Admit Weight 206 lb Weight 209 lb 14.4 oz Most Recent Monitor Data Heart Rate from ECG 73 NIBP 106/46 NIBP BP-Mean 66 Respiration from ECG 25 SpO2 92 I&O: 09/21/19 09/22/19 09/23/19 06:59 06:59 06:59 Intake Total 1585 1688.7 435.4 Output Total 2880 945 250 Balance -1295 743.7 185.4 Result Diagrams: 09/22/19 09:15 09/22/19 09:17 Additional Labs: Accuchecks 09/22/19 09/22/19 09/21/19 09:20 04:15 23:14 POC Glucose 156 H 210 H 224 H Hospitalist ROS - Medication Medications: Active Medications Generic Name Dose Route Start Last Admin Trade Name Freq PRN Reason Stop Dose Admin Acetaminophen 650 mg 09/20/19 02:27 09/21/19 09:27 Tylenol PO 650 mg Q6H PRN Administration Fever > 101 or Headache Acetaminophen 650 mg 09/21/19 14:43 09/22/19 08:38 Tylenol [place] 650 mg Q6H PRN Administration .FEVER Carvedilol 12.5 mg 09/20/19 17:00 09/22/19 08:35 Coreg PO 12.5 mg BID-WM JED Administration Glimepiride 4 mg 09/21/19 07:30 09/22/19 08:35 Amaryl PO 4 mg DAILY-AC JED Administration Clindamycin Phosphate/Dextrose 50 mls @ 100 mls/hr 09/20/19 10:00 09/22/19 08 :57 900 mg/ Device IVPB 50 mls 0200,1000,1800 JED Administration Levofloxacin 750 mg/ Device 150 mls @ 100 mls/hr 09/21/19 02:00 09/22/19 02: 45 IVPB 150 mls Q24HR JED Administration Levetiracetam 500 mg/ Device 100 mls @ 200 mls/hr 09/20/19 21:00 09/22/19 08: 36 IVPB 100 mls BID JED Administration Nicardipine HCl 50 mg/ Sodium 250 mls @ 0 mls/hr 09/20/19 09:45 09/20/19 15: 56 Chloride IVPB 250 mls INF JED Administration Protocol Titrate Micafungin Sodium 100 mg/ 100 mls @ 100 mls/hr 09/22/19 11:00 09/22/19 11:07 Sodium Chloride IVPB 09/27/19 11:01 100 mls 1100 JED Administration Insulin Human Lispro 0 units 09/20/19 07:39 09/22/19 09:52 Humalog SC 2 units .MODERATE SLIDING SC PRN Administration Moderate Correctional Scale Labetalol HCl 10 mg 09/20/19 02:27 09/22/19 05:15 Normodyne SLOW IVP 10 mg Q10MIN PRN Administration SBP > 150 or DBP > 90 Lisinopril 5 mg 09/20/19 21:00 09/22/19 08:35 Zestril PO 5 mg BID JED Administration Lorazepam 2 mg 09/20/19 00:25 09/21/19 13:02 Ativan SLOW IVP 10/20/19 00:25 2 mg Q1H PRN Administration Breakthrough agitation Pantoprazole Sodium 40 mg 09/20/19 09:00 09/22/19 08:37 Protonix IVP 40 mg DAILY JED Administration Propofol 1,000 mg 09/20/19 00:25 09/21/19 14:42 Diprivan IV 10/20/19 00:25 1,000 mg INF PRN Administration TO ACHIEVE GOAL RASS Protocol Sodium Chloride 10 ml 09/20/19 09:00 09/22/19 08:37 Flush - Normal Saline IVF 10 ml Q12HR JED Administration - Exam Eye: anicteric sclera (Pupils pinpoint) Neck: no JVD Heart: RRR Respiratory: CTAB Gastrointestinal: soft Extremities: 1+ LE edema Hosp A/P (1) Acute respiratory failure with hypoxia Code(s): J96.01 - ACUTE RESPIRATORY FAILURE WITH HYPOXIA Status: Acute (2) Hypokalemia Code(s): E87.6 - HYPOKALEMIA Status: Acute Plan: Resolved.. (3) Hyponatremia Code(s): E87.1 - HYPO-OSMOLALITY AND HYPONATREMIA Status: Acute Plan: Resolved.. (4) Subdural hematoma Code(s): S06.5X9A - TRAUM SUBDR HEM W LOC OF UNSP DURATION, INIT Status: Acute Plan: s/p drainage.. 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 (6) Diabetes type 2, controlled Code(s): E11.9 - TYPE 2 DIABETES MELLITUS WITHOUT COMPLICATIONS Status: Chronic Qualifiers: Diabetes mellitus adjunct faculty for medical terminology insulin use: with nursing home use Diabetes mellitus complication status: without complication Qualified Code(s): E11.9 - Type 2 diabetes mellitus without complications; Z79.4 - termite exterminator (current) use of insulin (7) Dyslipidemia Code(s): E78.5 - HYPERLIPIDEMIA, UNSPECIFIED Status: Chronic (8) Hypertension Code(s): I10 - ESSENTIAL (PRIMARY) HYPERTENSION Status: Chronic Qualifiers: Hypertension type: essential hypertension Qualified Code(s): I10 - Essential (primary) hypertension Plan: controlled.. (9) Obesity (BMI 30-39.9) Code(s): E66.9 - OBESITY, UNSPECIFIED Status: Chronic (10) PAF (paroxysmal atrial fibrillation) Code(s): I48.0 - PAROXYSMAL ATRIAL FIBRILLATION Status: Chronic - Plan Continue current therapy,..anticonvulsants.. Neurology consulted. Supportive therapy
[2019-09-22] MEDS: Propofol 1,000 MG/100 ML VIAL IV PRN (15:17)
--- NOTE | 2019-09-22 18:10 | CON ---
DATE OF CONSULTATION: 09/22/2019 CONSULTING PHYSICIAN: Hospitalist Service. IMPRESSION: 1. Continued focal seizures. 2. Subdural hematoma secondary to traumatic head injury. 3. History of atrial fibrillation on anticoagulation. 4. Diabetes. 5. Parkinson disease. 6. 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 PLAN: 1. Continue Dilantin at 300 mg daily. 2. Increase Keppra to 1500 mg twice a day. 3. Follow clinical course. HISTORY OF PRESENT ILLNESS: Ms. Boles is an 79-year-old woman with multiple medical problems. On the of the year, she fell from her wheelchair and hit her head. This resulted in a subdural hematoma with some subarachnoid hemorrhage. She was taken to the OR by Dr. Hitchcock. Drains were placed and the hemorrhage was decompressed. She has been moved to the intensive care unit. She has been on ventilatory support. She has continued to have episodic focal seizures that are predominantly left-sided. The nurses report that it usually only lasts 5 or 10 seconds. She is currently on a propofol drip. Her Dilantin level was 8.9. She is on Keppra 500 mg twice a day. She is not running any fever. Her metabolic status has been stable. PAST MEDICAL HISTORY: As listed above. ALLERGIES: PER CHART. SOCIAL HISTORY: No tobacco or illicit drug use. FAMILY HISTORY: Noncontributory. REVIEW OF SYSTEMS: Not obtainable. PHYSICAL EXAMINATION: VITAL SIGNS: Have been stable. She is afebrile. HEENT: Pupils are equal. Eyes are conjugate. Conjunctivae clear. She is orally intubated. NECK: Supple. No lymphadenopathy. EXTREMITIES: A bit edematous. NEUROLOGIC: She responds weakly to painful stimuli. She had some intermittent left facial twitching. Her tone is relatively symmetric. DIAGNOSTIC STUDIES: CT scan of the brain was reviewed which shows some pneumoencephaly on the right with some residual subarachnoid hemorrhage around the brainstem region. LABORATORY DATA: Laboratory studies were reviewed. SUMMARY: This is an elderly lady with multiple problems, who is having some continued focal seizures following her subdural hematoma. Maximize her current anticonvulsants. Overall prognosis does not look very good. Continue to follow in her care. Job ID: [id number]
[2019-09-22] MEDS: levETIRAcetam In NaCl (Iso-Os) 1,500 MG in Premix Bag 1 BAG IVPB SCH (20:21)
[2019-09-22] MEDS: Lorazepam 2 MG/ML VIAL SLOW IVP PRN (21:22)
[2019-09-23] MEDS: Clindamycin/D5W 900 MG in Premix Bag 1 BAG IVPB SCH ×3 (02:07→16:56)
[2019-09-23] MEDS: HumaLOG 300 UNITS/3 ML VIAL SC PRN ×4 (04:28→23:17)
[2019-09-23] MEDS: Lisinopril 5 MG TAB PO SCH ×2 (08:10→20:59)
[2019-09-23] MEDS: Carvedilol 6.25 MG TAB PO SCH ×2 (08:10→16:11)
[2019-09-23] MEDS: levETIRAcetam In NaCl (Iso-Os) 1,500 MG in Premix Bag 1 BAG IVPB SCH ×2 (08:11→20:59)
[2019-09-23] MEDS: Glimepiride 4 MG TAB PO SCH (08:11)
[2019-09-23] MEDS: Pantoprazole 40 MG VIAL IVP SCH (08:11)
[2019-09-23] MEDS: Lorazepam 2 MG/ML VIAL SLOW IVP PRN ×2 (08:23→16:12)
[2019-09-23] MEDS: Labetalol HCl 100 MG/20 ML VIAL SLOW IVP PRN (08:41)
[2019-09-23] MEDS ORDERED: Insulin Glargine 25 UNITS in Pre-Filled Syringe 1 EACH SC SCH (09:00)
--- NOTE | 2019-09-23 09:47 | PRG ---
DATE OF SERVICE: 09/23/2019 I saw Ms. Boles in her ICU room this morning. A scalp drain remains in place from her craniotomy. In the nurse's note, a seizure-like activity with chin movement from [id number], that is focal and not generalized. No other events have been reported. Overnight, the maximum temperature I see recorded among the electronic vital signs is 101.0 degrees Fahrenheit. Her blood pressures have been between 120s and 150s. On examination, Ms. Boles has weak flexion of the lower extremities and some withdrawal of the left upper extremity faster than the right upper extremity. Yesterday's laboratory evaluation showed that her sodium was 137, and her white blood cell count was 5.4. Ms. Boles has had evacuations of subdural hematoma, but continued seizure activity from the brain irritation caused by the hemorrhage and surgery. Her temperature was up overnight. I plan on clamping the scalp drain and sending the contents of the drain for culture. If she spikes another temperature, we will culture her sputum, blood, and urine. I am depending on colleagues in Neurology for seizure control. This continued partial seizure activity is problematic in her recovery by proving difficult to control. I am going to follow up personally with the family later this morning if they are in the hospital. Job ID: [id number] [facility]
[2019-09-23] MEDS: Micafungin 100 MG in Sodium Chloride 0.9% 100 ML IVPB SCH (10:14)
--- NOTE | 2019-09-23 11:08 | PRG ---
DATE OF SERVICE: 09/23/2019 Ms. Boles is on continued ventilatory support. She continues to have brief left facial seizures that last no more than about 3 or 4 seconds. We increased the Keppra yesterday. This will reach steady state in 2 to 3 days. She has been on propofol drip as well. She has been receiving some p.r.n. Ativan. Neurosurgery and Pulmonary have discussed the poor prognosis with the family. I would agree that given the continued focal status epilepticus, the prognosis is quite poor based on that ongoing problem. We will continue her current doses to see if things settle down in the next two days. Job ID: [id number]
[2019-09-23] MEDS: Propofol 1,000 MG/100 ML VIAL IV PRN ×2 (11:52→16:12)
--- NOTE | 2019-09-23 12:00 | PDOC.HOSPP ---
- Subjective Encounter Date: 09/23/19 Encounter Time: 11:00 Subjective: Keeps her eyes closed.. No response to any stimulus.. - Objective Vital Signs & Weight: Vital Signs (12 hours) Temp Pulse Resp BP Pulse Ox 09/23/19 10:43 81 09/23/19 10:00 29 H 09/23/19 08:41 85 149/43 H 09/23/19 08:10 85 141/45 H 09/23/19 08:00 99.3 F 27 H 09/23/19 07:44 85 09/23/19 07:39 93 L 09/23/19 06:00 24 H 09/23/19 04:00 99.4 F 25 H 09/23/19 02:00 25 H 09/23/19 00:00 27 H Weight Admit Weight 206 lb Weight 221 lb 6.4 oz Most Recent Monitor Data Heart Rate from ECG 81 NIBP 118/78 NIBP BP-Mean 91 Respiration from ECG 25 SpO2 94 I&O: 09/22/19 09/23/19 09/24/19 06:59 06:59 06:59 Intake Total 1688.7 2465.0 330 Output Total 945 1149 350 Balance 743.7 1316.0 -20 Result Diagrams: 09/22/19 09:15 09/22/19 09:17 Additional Labs: Accuchecks 09/23/19 09/23/19 09/22/19 10:16 04:30 22:13 POC Glucose 245 H 308 H 287 H 09/22/19 09/21/19 09/21/19 15:28 16:31 10:38 POC Glucose 237 H 190 H 238 H Hospitalist ROS - Medication Medications: Active Medications Generic Name Dose Route Start Last Admin Trade Name Freq PRN Reason Stop Dose Admin Acetaminophen 650 mg 09/20/19 02:27 09/21/19 09:27 Tylenol PO 650 mg Q6H PRN Administration Fever > 101 or Headache Acetaminophen 650 mg 09/21/19 14:43 09/22/19 08:38 Tylenol [place] 650 mg Q6H PRN Administration .FEVER Carvedilol 12.5 mg 09/20/19 17:00 09/23/19 08:10 Coreg PO 12.5 mg BID-WM JED Administration Glimepiride 4 mg 09/21/19 07:30 09/23/19 08:11 Amaryl PO 4 mg DAILY-AC JED Administration Clindamycin Phosphate/Dextrose 50 mls @ 100 mls/hr 09/20/19 10:00 09/23/19 08 :42 900 mg/ Device IVPB 50 mls 0200,1000,1800 JED Administration Levofloxacin 750 mg/ Device 150 mls @ 100 mls/hr 09/21/19 02:00 09/23/19 02: 07 IVPB 150 mls Q24HR JED Administration Nicardipine HCl 50 mg/ Sodium 250 mls @ 0 mls/hr 09/20/19 09:45 09/20/19 15: 56 Chloride IVPB 250 mls INF JED Administration Protocol Titrate Fosphenytoin Sodium 300 mg/ 56 mls @ 100 mls/hr 09/22/19 21:00 09/22/19 21:53 Sodium Chloride IVPB 56 mls HS JED Administration Micafungin Sodium 100 mg/ 100 mls @ 100 mls/hr 09/22/19 11:00 09/23/19 10:14 Sodium Chloride IVPB 09/27/19 11:01 100 mls 1100 JED Administration Insulin Glargine 25 units/ 0.25 mls @ 1 mls/hr 09/23/19 09:00 09/23/19 10:48 Miscellaneous Medication SC 0.25 mls DAILY JED Administration Levetiracetam 1,500 mg/ Device 100 mls @ 200 mls/hr 09/22/19 21:00 09/23/19 08:11 IVPB 100 mls BID JED Administration Insulin Human Lispro 0 units 09/23/19 09:36 09/23/19 10:15 Humalog SC 6 unit .AGGRESSIVE SLIDING PRN Administration AGGRESSIVE SLIDING SCALE Protocol Labetalol HCl 10 mg 09/20/19 02:27 09/23/19 08:41 Normodyne SLOW IVP 10 mg Q10MIN PRN Administration SBP > 150 or DBP > 90 Lisinopril 5 mg 09/20/19 21:00 09/23/19 08:10 Zestril PO 5 mg BID JED Administration Lorazepam 2 mg 09/20/19 00:25 09/21/19 13:02 Ativan SLOW IVP 10/20/19 00:25 2 mg Q1H PRN Administration Breakthrough agitation Lorazepam 2 mg 09/22/19 18:55 09/23/19 08:23 Ativan SLOW IVP 2 mg Q5M PRN Administration Seizures Pantoprazole Sodium 40 mg 09/20/19 09:00 09/23/19 08:11 Protonix IVP 40 mg DAILY JED Administration Propofol 1,000 mg 09/20/19 00:25 09/23/19 11:52 Diprivan IV 10/20/19 00:25 1,000 mg INF PRN Administration TO ACHIEVE GOAL RASS Protocol Sodium Chloride 10 ml 09/20/19 09:00 09/23/19 10:20 Flush - Normal Saline IVF 10 ml Q12HR JED Administration - Exam Neck: no JVD Heart: RRR Respiratory: CTAB Gastrointestinal: soft Extremities: 1+ LE edema Hosp A/P (1) Acute respiratory failure with hypoxia Code(s): J96.01 - ACUTE RESPIRATORY FAILURE WITH HYPOXIA Status: Acute (2) Hypokalemia Code(s): E87.6 - HYPOKALEMIA Status: Resolved (3) Hyponatremia Code(s): E87.1 - HYPO-OSMOLALITY AND HYPONATREMIA Status: Resolved (4) Subdural hematoma Code(s): S06.5X9A - TRAUM SUBDR HEM W LOC OF UNSP DURATION, INIT Status: Acute (5) Chronic anticoagulation Code(s): Z79.01 - CUSTODIAL (CURRENT) USE OF ANTICOAGULANTS Status: Chronic (6) Diabetes type 2, controlled Code(s): E11.9 - TYPE 2 DIABETES MELLITUS WITHOUT COMPLICATIONS Status: Chronic Qualifiers: Diabetes mellitus mcfp insulin use: with long wall shear operator use Diabetes mellitus complication status: without complication Qualified Code(s): E11.9 - Type 2 diabetes mellitus without complications; Z79.4 - rn long term care (current) use of insulin (7) Dyslipidemia Code(s): E78.5 - HYPERLIPIDEMIA, UNSPECIFIED Status: Chronic (8) Hypertension Code(s): I10 - ESSENTIAL (PRIMARY) HYPERTENSION Status: Chronic Qualifiers: Hypertension type: essential hypertension Qualified Code(s): I10 - Essential (primary) hypertension (9) Obesity (BMI 30-39.9) Code(s): E66.9 - OBESITY, UNSPECIFIED Status: Chronic (10) PAF (paroxysmal atrial fibrillation) Code(s): I48.0 - PAROXYSMAL ATRIAL FIBRILLATION Status: Chronic - Plan Continue current therapy,..anticonvulsants.. Appreciate neurology input.. Supportive therapy
[2019-09-23 12:14] LABS: Anion Gap 12 mmol/L (10-20); BUN (Urea Nitrogen) 26 mg/dL (9.8-20.1); Calc. Creatinine Clearance 63 mL/min (70-130); Calcium 8.1 mg/dL (7.8-10.44); Carbon Dioxide 19 mmol/L (23-31); Chloride 109 mmol/L (98-107); Estimated GFR-MDRD 47; Glucose 271 mg/dL (83-110); Potassium 3.7 mmol/L (3.5-5.1); Sodium 136 mmol/L (136-145)
[2019-09-23 12:31] LABS: Band 38 % (5-11); Hemoglobin 9.8 g/dL (12.0-16.0); Lymphocytes 6 % (21-51); MDiff Complete? YES; Mean Corpuscular HGB CONC 34.7 g/dL (32.0-36.0); Mean Corpuscular Volume 95.2 fL (78.0-98.0); Mean Platelet Volume 9.7 fL (7.4-10.4); Metamyelocyte 3 % (0-0); Monocytes 5 % (0-10); Neutrophil 47 % (42-75); Platelet Count 114 thou/uL (130-400); Platelet Morphology Comment Appears Decreased; RBC Distribution Width 12.2 % (11.5-14.5); Red Blood Cell (RBC) Count 2.96 mill/uL (4.20-5.40); Toxic Granulation SLIGHT
[2019-09-23] MEDS ORDERED: Scopolamine 1.5 mg/72 hour Patch TD SCH (13:00)
--- NOTE | 2019-09-23 14:05 | PRG ---
DATE OF SERVICE: 09/23/2019 SERVICE: Pulmonary Medicine. INTERVAL HISTORY: The patient is doing really well from respiratory standpoint. That being said, neurologically, things remain the same. She is not able to provide any additional elements of the history. Whenever the propofol is held, she continues to have ongoing seizure activity. PHYSICAL EXAMINATION: VITAL SIGNS: Afebrile, pulse 85, blood pressure 127/39, respirations 22, saturation 93%, currently on 30% FiO2 and a PEEP of 5. GENERAL: The patient is intubated. She is on sedation to abort seizure activity. HEENT: Normocephalic and atraumatic. Sclerae white. Conjunctivae pink. Oral mucosa is moist without lesions. LUNGS: Decent air entry without any prolonged expiratory phase. There is no wheezing. Crackles are present. HEART: Normal rate regular. ABDOMEN: Soft, nontender, nondistended, bowel sounds are positive. MUSCULOSKELETAL: No cyanosis or clubbing. There is diffuse 2+ pitting throughout. LABORATORY DATA: WBC 6.0, hemoglobin 9.8, platelets are 114,000. INR 1.1. Creatinine 1.11, which is gently downtrending. BUN 26. Basic metabolic profile is otherwise unremarkable. Potassium 3.7. Blood cultures x2, respiratory culture, urine culture negative to date. ASSESSMENT: 1. Acute hypoxic respiratory failure. 2. Community-acquired pneumonia. 3. Status epilepticus. 4. Traumatic subdural hematoma, status post craniectomy, evacuation with external drain in place, postop day 4. 5. Parkinson disease with dementia. 6. Debility, advanced at baseline. DISCUSSION AND PLAN: I have had a conversation with the family today. The likelihood of a robust neurologic recovery is very, very low. That being said, likelihood of a functional recovery is essentially non-existent given her advanced dementia, Parkinson disease, and debility at baseline. The patient's family is thinking about transitioning over to comfort measures only as she has an advance directive that indicates that she would not want aggressive maneuvers moving forward. I simply do not see way out of this thing without tracheostomy, and PEG tube placement and very long-term [facility] care. Critical Care will continue to follow along while she remains in-house. The family was updated, and all questions were answered. Job ID: [id number]
[2019-09-24] MEDS: Labetalol HCl 100 MG/20 ML VIAL SLOW IVP PRN ×4 (02:03→23:01)
[2019-09-24] MEDS: Clindamycin/D5W 900 MG in Premix Bag 1 BAG IVPB SCH ×3 (02:07→17:48)
[2019-09-24 05:30] LABS: Anion Gap 13 mmol/L (10-20); BUN (Urea Nitrogen) 28 mg/dL (9.8-20.1); Calc. Creatinine Clearance 64 mL/min (70-130); Calcium 8.5 mg/dL (7.8-10.44); Carbon Dioxide 20 mmol/L (23-31); Chloride 108 mmol/L (98-107); Estimated GFR-MDRD 48; Glucose 252 mg/dL (83-110); Potassium 3.8 mmol/L (3.5-5.1); Sodium 137 mmol/L (136-145)
[2019-09-24 05:49] VITALS: BMI 37.3
[2019-09-24] MEDS: HumaLOG 300 UNITS/3 ML VIAL SC PRN ×3 (05:59→16:35)
[2019-09-24 06:03] LABS: Hemoglobin 9.8 g/dL (12.0-16.0); Mean Corpuscular Hemoglobin 32.6 pg (27.0-31.0); Mean Corpuscular Volume 95.8 fL (78.0-98.0); Mean Platelet Volume 10.1 fL (7.4-10.4); Platelet Count 144 thou/uL (130-400); RBC Distribution Width 12.4 % (11.5-14.5); Red Blood Cell (RBC) Count 2.99 mill/uL (4.20-5.40); White Blood Cell (WBC) Count 8.2 thou/uL (4.8-10.8)
[2019-09-24 06:10] LABS: Band 35 % (5-11); Eosinophils 2 % (0-10); Lymphocytes 10 % (21-51); MDiff Complete? YES; Metamyelocyte 2 % (0-0); Monocytes 10 % (0-10); Myelocyte 2 % (0-0); Neutrophil 39 % (42-75); Platelet Morphology Comment Appears Adequate; Toxic Granulation SLIGHT
[2019-09-24] MEDS: Glimepiride 4 MG TAB PO SCH (08:16)
[2019-09-24] MEDS: Acetaminophen 325 MG TAB PO PRN ×2 (08:31→15:05)
[2019-09-24] MEDS: Propofol 1,000 MG/100 ML VIAL IV PRN ×2 (08:31→18:45)
[2019-09-24] MEDS: Carvedilol 6.25 MG TAB PO SCH ×2 (08:31→17:48)
[2019-09-24] MEDS: Lisinopril 5 MG TAB PO SCH ×2 (08:32→20:31)
[2019-09-24] MEDS: Pantoprazole 40 MG VIAL IVP SCH (08:33)
[2019-09-24] MEDS: levETIRAcetam In NaCl (Iso-Os) 1,500 MG in Premix Bag 1 BAG IVPB SCH ×2 (08:33→20:30)
[2019-09-24] MEDS ORDERED: Glimepiride 4 MG TAB PER TUBE SCH (09:00)
[2019-09-24] MEDS ORDERED: Insulin Glargine 30 UNITS in Pre-Filled Syringe 1 EACH SC SCH (09:00)
--- NOTE | 2019-09-24 10:18 | PDOC.HOSPP ---
- Subjective Encounter Date: 09/24/19 Encounter Time: 09:55 Subjective: No response to any stimulus.. - Objective Vital Signs & Weight: Vital Signs (12 hours) Temp Pulse Resp BP 09/24/19 08:32 89 137/45 L 09/24/19 08:31 153/34 H 09/24/19 08:06 89 09/24/19 06:00 29 H 09/24/19 04:30 84 153/34 H 09/24/19 04:00 26 H 09/24/19 03:20 81 143/54 H 09/24/19 02:03 85 150/40 H 09/24/19 02:00 30 H 09/24/19 00:00 98.9 F 30 H 09/23/19 22:48 80 118/54 L Weight Admit Weight 206 lb Weight 224 lb 4.8 oz Most Recent Monitor Data Heart Rate from ECG 86 NIBP 145/49 NIBP BP-Mean 81 Respiration from ECG 28 SpO2 93 I&O: 09/23/19 09/24/19 09/25/19 06:59 06:59 06:59 Intake Total 2465.0 2844.8 Output Total 1149 1175 Balance 1316.0 1669.8 Result Diagrams: 09/24/19 03:50 09/24/19 03:50 Additional Labs: Accuchecks 09/24/19 09/23/19 09/23/19 09:52 23:19 16:14 POC Glucose 221 H 316 H 275 H 09/23/19 10:16 POC Glucose 245 H Hospitalist ROS - Medication Medications: Active Medications Generic Name Dose Route Start Last Admin Trade Name Freq PRN Reason Stop Dose Admin Acetaminophen 650 mg 09/20/19 02:27 09/24/19 08:31 Tylenol PO 650 mg Q6H PRN Administration Fever > 101 or Headache Acetaminophen 650 mg 09/21/19 14:43 09/22/19 08:38 Tylenol [place] 650 mg Q6H PRN Administration .FEVER Carvedilol 12.5 mg 09/20/19 17:00 09/24/19 08:31 Coreg PO 12.5 mg BID-WM JED Administration Glimepiride 4 mg 09/24/19 09:00 09/24/19 08:32 Amaryl PER TUBE 4 mg DAILY JED Administration Clindamycin Phosphate/Dextrose 50 mls @ 100 mls/hr 09/20/19 10:00 09/24/19 08 :56 900 mg/ Device IVPB 50 mls 0200,1000,1800 JED Administration Levofloxacin 750 mg/ Device 150 mls @ 100 mls/hr 09/21/19 02:00 09/24/19 02: 07 IVPB 150 mls Q24HR JED Administration Nicardipine HCl 50 mg/ Sodium 250 mls @ 0 mls/hr 09/20/19 09:45 09/20/19 15: 56 Chloride IVPB 250 mls INF JED Administration Protocol Titrate Fosphenytoin Sodium 300 mg/ 56 mls @ 100 mls/hr 09/22/19 21:00 09/23/19 20:58 Sodium Chloride IVPB 56 mls HS JED Administration Micafungin Sodium 100 mg/ 100 mls @ 100 mls/hr 09/22/19 11:00 09/23/19 10:14 Sodium Chloride IVPB 09/27/19 11:01 100 mls 1100 JED Administration Levetiracetam 1,500 mg/ Device 100 mls @ 200 mls/hr 09/22/19 21:00 09/24/19 08:33 IVPB 100 mls BID JED Administration Insulin Glargine 30 units/ 0.3 mls @ 1.2 mls/hr 09/24/19 09:00 09/24/19 08:52 Miscellaneous Medication SC 0.3 mls DAILY JED Administration Insulin Human Lispro 0 units 09/23/19 09:36 09/24/19 09:57 Humalog SC 6 unit .AGGRESSIVE SLIDING PRN Administration AGGRESSIVE SLIDING SCALE Protocol Labetalol HCl 10 mg 09/20/19 02:27 09/24/19 04:30 Normodyne SLOW IVP 10 mg Q10MIN PRN Administration SBP > 150 or DBP > 90 Lisinopril 5 mg 09/20/19 21:00 09/24/19 08:32 Zestril PO 5 mg BID JED Administration Lorazepam 2 mg 09/20/19 00:25 09/21/19 13:02 Ativan SLOW IVP 10/20/19 00:25 2 mg Q1H PRN Administration Breakthrough agitation Lorazepam 2 mg 09/22/19 18:55 09/23/19 16:12 Ativan SLOW IVP 2 mg Q5M PRN Administration Seizures Pantoprazole Sodium 40 mg 09/20/19 09:00 09/24/19 08:33 Protonix IVP 40 mg DAILY JED Administration Propofol 1,000 mg 09/20/19 00:25 09/24/19 08:31 Diprivan IV 10/20/19 00:25 1,000 mg INF PRN Administration TO ACHIEVE GOAL RASS Protocol Scopolamine 1.5 mg 09/23/19 13:00 09/23/19 13:34 Transderm Scop TD 1.5 mg Q3D JED Administration Sodium Chloride 10 ml 09/20/19 09:00 09/24/19 08:34 Flush - Normal Saline IVF Not Given Q12HR JED - Exam Neck: no JVD Heart: RRR Respiratory: CTAB Gastrointestinal: soft Extremities: 1+ LE edema Hosp A/P (1) Acute respiratory failure with hypoxia Code(s): J96.01 - ACUTE RESPIRATORY FAILURE WITH HYPOXIA Status: Acute (2) Hypokalemia Code(s): E87.6 - HYPOKALEMIA Status: Resolved (3) Hyponatremia Code(s): E87.1 - HYPO-OSMOLALITY AND HYPONATREMIA Status: Resolved (4) Subdural hematoma Code(s): S06.5X9A - TRAUM SUBDR HEM W LOC OF UNSP DURATION, INIT Status: Acute (5) Chronic anticoagulation Code(s): Z79.01 - IN TUBE CONVERSION TECHNICIAN (CURRENT) USE OF ANTICOAGULANTS Status: Chronic (6) Diabetes type 2, controlled Code(s): E11.9 - TYPE 2 DIABETES MELLITUS WITHOUT COMPLICATIONS Status: Chronic Qualifiers: Diabetes mellitus shelter insulin use: with shelter use Diabetes mellitus complication status: without complication Qualified Code(s): E11.9 - Type 2 diabetes mellitus without complications; Z79.4 - technician terminal and repeater (current) use of insulin (7) Dyslipidemia Code(s): E78.5 - HYPERLIPIDEMIA, UNSPECIFIED Status: Chronic (8) Hypertension Code(s): I10 - ESSENTIAL (PRIMARY) HYPERTENSION Status: Chronic Qualifiers: Hypertension type: essential hypertension Qualified Code(s): I10 - Essential (primary) hypertension (9) Obesity (BMI 30-39.9) Code(s): E66.9 - OBESITY, UNSPECIFIED Status: Chronic (10) PAF (paroxysmal atrial fibrillation) Code(s): I48.0 - PAROXYSMAL ATRIAL FIBRILLATION Status: Chronic - Plan Continue current therapy,..anticonvulsants.. Appreciate neurology input.. Supportive therapy.. Family is contemplating comfort care.
--- NOTE | 2019-09-24 10:45 | PRG ---
DATE OF SERVICE: 09/24/2019 I saw Corine Boles on rounds this morning. She remains in the ICU. Her subgaleal drain is tapered off nicely. Nursing reports no significant changes overnight. Among the recorded electronic vital signs, I do not see any fevers in the last 24 hours. The T-max was 99.1 degrees Fahrenheit. Soft systolic blood pressures have ranged between 110 and 150s. On examination, there is withdrawal of both upper extremities and lower extremities. There is some eye opening with enough stimulation. However, with medication needed for seizure control including propofol, Ativan, Keppra, and Dilantin, it is tough to get an accurate picture of the neurological function. White blood cell count is 8.2, and the sodium is 137. Ms. Boles' drain can be removed. Her fever curve is tapered off nicely. Seizure control is an issue. Evidently, the family is going to make some decisions about comfort care. I waited for them yesterday on rounds, but did not make contact in person. They are not here this morning. Job ID: [id number]
[2019-09-24] MEDS: Micafungin 100 MG in Sodium Chloride 0.9% 100 ML IVPB SCH (11:36)
--- NOTE | 2019-09-24 12:05 | PRG ---
DATE OF SERVICE: 09/24/2019 SERVICE: Pulmonary Medicine. INTERVAL HISTORY: The patient is doing poorly from a neurologic standpoint. She has not made any significant neurologic recovery. She cannot provide any additional elements of the history. Otherwise, there has been no interval change to her condition. PHYSICAL EXAMINATION: VITAL SIGNS: Afebrile currently with the last temperature on the 22 of September, which was 101.1. Pulse 81, blood pressure 117/48, respirations 32, saturation 94% on 53% FiO2 and a PEEP of 5. GENERAL: The patient is intubated. HEENT: Normocephalic and atraumatic. Sclerae white. Conjunctivae pink. Oral mucosa is moist without lesions. LUNGS: Decent air entry. Crackles and rhonchi are present. HEART: Normal rate, regular. ABDOMEN: Soft, nontender, nondistended. Bowel sounds are positive. MUSCULOSKELETAL: No cyanosis or clubbing. There is diffuse 2+ pitting throughout. LABORATORY DATA: WBC 8.2, hemoglobin 9.8, platelets 144,000 and rebounding. INR 1.1. PH 7.41, pCO2 of 36, pO2 of 79. Creatinine 1.09, improving. BUN 28. Bicarb 20. Basic metabolic profile is otherwise unremarkable. Blood cultures x2, respiratory culture, and urine culture all unremarkable to date. ASSESSMENT: 1. Acute hypoxic respiratory failure. 2. Community-acquired pneumonia. 3. Status epilepticus. 4. Traumatic subdural hematoma, status post craniectomy and evacuation with external drain placement and subsequent removal, postop day 5. 5. Parkinson disease with dementia. 6. Debility. DISCUSSION AND PLAN: The patient is doing poorly from a neurologic standpoint. Otherwise, her body seems to be doing okay. We will continue to minimize fluids through time. I believe the family is transitioning over to comfort care only either today or tomorrow. Critical Care will follow. Laboratories for tomorrow morning will be suspended. Job ID: [id number]
[2019-09-24] MEDS ORDERED: Sodium Chloride 0.9% 15 ML NEB ONE (17:34)
[2019-09-24] MEDS: Lorazepam 2 MG/ML VIAL SLOW IVP PRN (20:06)
[2019-09-25] MEDS: Propofol 1,000 MG/100 ML VIAL IV PRN ×3 (00:51→12:00)
[2019-09-25] MEDS: Carvedilol 6.25 MG TAB PO SCH (08:29)
[2019-09-25] MEDS: Morphine 2 MG/ML SYRINGE SLOW IVP PRN ×5 (09:12→17:48)
[2019-09-25] MEDS: Lorazepam 2 MG/ML VIAL SLOW IVP PRN ×5 (09:12→17:48)
[2019-09-25] MEDS: levETIRAcetam In NaCl (Iso-Os) 1,500 MG in Premix Bag 1 BAG IVPB SCH (10:04)
--- NOTE | 2019-09-25 10:13 | PRG ---
DATE OF SERVICE: 09/25/2019 SERVICE: Pulmonary Medicine. INTERVAL HISTORY: The patient is doing fine from respiratory standpoint. We did a bronchoscopy yesterday and suctioned some mucus plugs. That being said, the family would like to convene today at 10 o'clock to withdraw care. She cannot provide any additional elements of the history. PHYSICAL EXAMINATION: VITAL SIGNS: Afebrile, pulse 90, blood pressure 150/54, respirations 36, saturation 97%, currently on 40% FiO2 and a PEEP of 5. GENERAL: The patient is intubated and sedated. HEENT: Normocephalic and atraumatic. Sclerae white. Conjunctivae pink. Oral mucosa is moist without lesions. LUNGS: Decent air entry. No prolonged expiratory phase or wheezing appreciated. HEART: Normal rate. Regular. ABDOMEN: Soft, nontender, and nondistended. Bowel sounds are positive. MUSCULOSKELETAL: No cyanosis or clubbing. There is 2+ pitting in the bilateral lower extremities. ASSESSMENT: 1. Acute hypoxic respiratory failure, improving. 2. Community-acquired pneumonia. 3. Traumatic subdural hematoma, status post craniectomy and evacuation with external drain placement and subsequent removal, postop day #6. 4. Status epilepticus. 5. Parkinson disease with dementia. 6. Debility. DISCUSSION AND PLAN: The patient is doing poorly from a neurologic perspective. The family has transitioned over to comfort measures only at 10 o'clock this morning. We will continue to be available for any issues that come up along the way. At the time that we transition to comfort care, the patient will become a DNAR. is expected during this hospital stay. Job ID: [id number] [facility]
--- NOTE | 2019-09-25 12:10 | PRG ---
DATE OF SERVICE: 09/25/2019 Ms. Boles is postoperative day #5, having undergone acute subdural hematoma evacuation. She has had a seizure-like activity. She has been afebrile. Her blood pressure has remained stable. She remains on Keppra and fosphenytoin. Her LAURA drain was removed yesterday and she is no longer on antibiotics. On physical examination, the patient does not have any mouth twitching and no obvious clinical evidence of seizures. Her pupils are pinpoint, but equal and reactive bilaterally. She is not moving any of the legs or arms to noxious stimulus, although she is on propofol. It is my understanding according to the nursing staff that the patient will be extubated and comfort measures enacted when the family is ready today. We will continue to follow, and our condolences go to the patient's family. Job ID: [id number]
[2019-09-25 14:43] VITALS: BP 154/55
--- NOTE | 2019-09-25 16:18 | PDOC.HOSPP ---
- Subjective Subjective: Seen and examined. Patient on propofol. Follows no commands. Moving no extremities. Neurosurgery involved in care. Patient's family are inclined to withdraw care today. - Objective Vital Signs & Weight: Vital Signs (12 hours) Temp Pulse Resp BP Pulse Ox 09/25/19 14:42 83 154/55 H 09/25/19 14:00 30 H 09/25/19 12:00 31 H 09/25/19 10:00 32 H 09/25/19 08:29 149/61 H 09/25/19 08:00 33 H 97 09/25/19 07:56 88 149/61 H 09/25/19 07:00 100.1 F H 09/25/19 06:00 35 H Weight Admit Weight 206 lb Weight 224 lb 4.8 oz Most Recent Monitor Data Heart Rate from ECG 83 NIBP 154/55 NIBP BP-Mean 88 Respiration from ECG 32 SpO2 97 I&O: 09/24/19 09/25/19 09/26/19 06:59 06:59 06:59 Intake Total 2844.8 1115 100 Output Total 1175 1395 455 Balance 1669.8 -280 -355 Result Diagrams: 09/24/19 03:50 09/24/19 03:50 Additional Labs: Accuchecks 09/24/19 16:36 POC Glucose 253 H Radiology Reviewed by me: Yes Hospitalist ROS - Review of Systems ROS unobtainable: due to mental status - Medication Medications: Active Medications Generic Name Dose Route Start Last Admin Trade Name Freq PRN Reason Stop Dose Admin Acetaminophen 650 mg 09/21/19 14:43 09/22/19 08:38 Tylenol [place] 650 mg Q6H PRN Administration .FEVER Nicardipine HCl 50 mg/ Sodium 250 mls @ 0 mls/hr 09/20/19 09:45 09/20/19 15: 56 Chloride IVPB 250 mls INF JED Administration Protocol Titrate Fosphenytoin Sodium 300 mg/ 56 mls @ 100 mls/hr 09/22/19 21:00 09/24/19 20:41 Sodium Chloride IVPB 56 mls HS JED Administration Levetiracetam 1,500 mg/ Device 100 mls @ 200 mls/hr 09/22/19 21:00 09/25/19 10:04 IVPB 100 mls BID JED Administration Labetalol HCl 10 mg 09/20/19 02:27 09/24/19 23:01 Normodyne SLOW IVP 10 mg Q10MIN PRN Administration SBP > 150 or DBP > 90 Lorazepam 2 mg 09/20/19 00:25 09/21/19 13:02 Ativan SLOW IVP 10/20/19 00:25 2 mg Q1H PRN Administration Breakthrough agitation Lorazepam 2 mg 09/22/19 18:55 09/25/19 09:12 Ativan SLOW IVP 2 mg Q5M PRN Administration Seizures Morphine Sulfate 2 mg 09/25/19 08:23 09/25/19 09:12 Morphine SLOW IVP 2 mg Q15MIN PRN Administration AIR HUNGER OR DISTRESS Propofol 1,000 mg 09/20/19 00:25 09/25/19 12:00 Diprivan IV 10/20/19 00:25 1,000 mg INF PRN Administration TO ACHIEVE GOAL RASS Protocol Scopolamine 1.5 mg 09/23/19 13:00 09/23/19 13:34 Transderm Scop TD 1.5 mg Q3D JED Administration Sodium Chloride 10 ml 09/20/19 09:00 09/25/19 10:04 Flush - Normal Saline IVF Not Given Q12HR JED - Exam General Appearance: ill appearing Eye: anicteric sclera ENT: no oropharyngeal lesions, moist mucosa Neck: supple, symmetric, no thyromegaly Heart: no murmur, no gallops, no rubs Respiratory: CTAB, no wheezes, no rales, no ronchi, tachypneic Gastrointestinal: soft, non-tender, no guarding, no rigidity Extremities: no edema Skin: no lesions, no rashes Neurological - other findings: Limited secondary to sedation, follows no commands Musculoskeletal: normal tone Psychiatric: not oriented Hosp A/P (1) Acute respiratory failure with hypoxia Code(s): J96.01 - ACUTE RESPIRATORY FAILURE WITH HYPOXIA Status: Acute (2) Debility Code(s): R53.81 - OTHER MALAISE Status: Acute (3) Subdural hematoma Code(s): S06.5X9A - TRAUM SUBDR HEM W LOC OF UNSP DURATION, INIT Status: Acute (4) Chronic anticoagulation Code(s): Z79.01 - SOUND EDITOR (CURRENT) USE OF ANTICOAGULANTS Status: Chronic (5) Diabetes type 2, controlled Code(s): E11.9 - TYPE 2 DIABETES MELLITUS WITHOUT COMPLICATIONS Status: Chronic Qualifiers: Diabetes mellitus superintendent marine oil terminal insulin use: with intermediate use Diabetes mellitus complication status: without complication Qualified Code(s): E11.9 - Type 2 diabetes mellitus without complications; Z79.4 - shelter (current) use of insulin (6) Dyslipidemia Code(s): E78.5 - HYPERLIPIDEMIA, UNSPECIFIED Status: Chronic (7) GERD (gastroesophageal reflux disease) Code(s): K21.9 - GASTRO-ESOPHAGEAL REFLUX DISEASE WITHOUT ESOPHAGITIS Status: Chronic Qualifiers: Esophagitis presence: without esophagitis Qualified Code(s): K21.9 - Gastro -esophageal reflux disease without esophagitis (8) Hypertension Code(s): I10 - ESSENTIAL (PRIMARY) HYPERTENSION Status: Chronic Qualifiers: Hypertension type: essential hypertension Qualified Code(s): I10 - Essential (primary) hypertension (9) Obesity (BMI 30-39.9) Code(s): E66.9 - OBESITY, UNSPECIFIED Status: Chronic (10) PAF (paroxysmal atrial fibrillation) Code(s): I48.0 - PAROXYSMAL ATRIAL FIBRILLATION Status: Chronic - Plan Plan: unfortunately poor prognosis for this patient despite maximal medical therapy neurosurgery consultation, recommendations appreciated palliative care consultation, recommendations appreciate pulmonology consultation, recommendations appreciated patients family may plan to have compassionate extubation today pain control sedation antiepileptic drug off antibiotic therapy blood pressure control blood sugar control disposition: poor prognosis despite maximal medical therapy.
[2019-09-25 16:43] VITALS: TEMP 99.6
--- NOTE | 2019-09-26 10:58 | DIS ---
DATE OF ADMISSION: 09/20/2019 DATE OF DISCHARGE: 09/25/2019 REASON FOR HOSPITALIZATION: Fall. SIGNIFICANT FINDINGS: The patient was found to have acute subdural hematoma-please see full radiographic imaging reports for details. The patient was admitted to the intensive care unit for close management. The patient was seen and evaluated by Neurosurgery, Dr. Hitchcock, who took the patient to the operating room on 09/20/2019-please see full operative report for details. Surgery was technically successful with evacuation of subdural hematoma. The patient had large right acute subdural hematoma with midline shift, mass effect, and significant neurological decline. At that point, the patient had already been intubated for airway protection and she was transferred to intensive care unit in stable condition. Unfortunately, throughout the patient's hospitalization, she did not improve. The patient had difficult to control seizure disorder and Neurology was consulted-please see full consultation notes and progress notes from Neurology for details. With adjustment of seizure medication, the patient did have some clinical improvement. Unfortunately, despite maximum medical therapy and surgical therapy, there was poor prognosis and palliative care was consulted. The patient's family elected for a compassionate extubation, which was performed on 09/25/2019. The patient from cardiopulmonary arrest secondary to hypoxia on 09/25/2019 at 1816 hours. The patient's body was sent to the mortuary of the family's choosing. CONDITION ON DISCHARGE: . SPECIFIC INSTRUCTIONS FOR THE PATIENT'S FAMILY: 1. The patient's family to follow up with mortuary for all future plan of care. 2. Medical records can be contacted for full details on hospital course for the patient's family if they wish. DISCHARGE MEDICATIONS: Not applicable. HOSPITAL COURSE: Ms. Boles was an 79-year-old female, who was transferred to [facility] in [place], [place] on 09/20/2019 after a fall. At the time of transfer, the patient was intubated after neurological decline. The patient does have a history of normal-pressure hydrocephalus, status post TELECOMMUNICATOR shunt by Dr. Guillermo Van in April 2019. The patient was wheelchair-bound at baseline. The patient was being pushed in the wheelchair by her when the chair of the wheelchair caught on something and the patient did have a fall. The patient was subsequently taken to [facility], found to be less responsive and intubated for airway protection. The patient was found to have acute subdural hematoma and she was transferred to [facility] in [place] for neurosurgical consultation. The patient was admitted to the intensive care unit for close management-please see full history and physical, consultation notes from jewish history professor, and consultation notes from Neurology and Neurosurgery for details. Neurosurgery, Dr. Hitchcock taking the patient to the operating room on 09/20/2019-please see full operative report for details. The patient with large right acute subdural hematoma with midline shift, mass effects, and neurologic decline. Procedure was technically successful and hematoma was evacuated. The patient was transferred to the intensive care unit for close management postoperatively. The patient did suffer from seizures and antiepileptic drugs were titrated appropriately by Neurology and Neurosurgery. 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 Unfortunately, despite maximum medical and surgical therapy, the patient did not make any improvements. Palliative Care was consulted, please see full consultation notes and progress notes for details. The patient's family electing for less aggressive measures and she had a compassion extubation on 09/25/2019. The patient from cardiopulmonary arrest in the evening of 09/25/2019 at 1816 hours. The patient's body was transferred to mortuary of the family's choosing. Greater than 40 minutes spent coordinating care and discharge process for this patient. Job ID: [id number]
--- NOTE | 2019-09-26 23:07 | PQF ---
DELONTE LAGUNAS ERIK [id number] U-[id number] CLINICAL DOCUMENTATION CLARIFICATION FORM: POST DISCHARGE Addendum to original discharge summary date: ____ Late entry note date: __ DATE:09/26/19 ATTN: Vishal Sutton Please exercise your independent, professional judgment in responding to the clarification form. Clinical indicators are provided on the bottom of this form for your review Please check appropriate box(s): [ ] Traumatic Cerebral edema / Vasogenic edema [ ] Traumatic Compression of brain [ ] Non-Traumatic Cerebral edema / Vasogenic edema [ ] Non-Traumatic Compression of brain [ XX ] Other diagnosis Defer to Neurology and Neurosurgery - please query specialist [ ] Unable to determine In addition, please specify: Present on Admission (POA): [ ] Yes [ ] No [ ] Unable to determine For continuity of documentation, please document condition throughout progress notes and discharge summary. Thank You. CLINICAL INDICATORS - SIGNS / SYMPTOMS / LABS H&P p1 09/20 Mayte KING s/p fall with acute on chronic subdural hematoma H&P p1 09/20 Mayte KING Apparently. Earlier tonight the patient's was pushing her in the wheelchair when the wheelchair caught on something and the patient fell out of the wheelchair H&P p1 09/20 Mayte KING There was mass effect and midline shift on the repeat CT scan H&P p1 09/20 Mayte KING GCS was E1 M5 V1 RISK FACTORS H&P p1 09/20 79 year-old female H&P p1 09/20 Normal pressure hydrocephalus s/p SCR[employer]ER shunt H&P p1 09/20 Afib on Eliquis TREATMENTS: Operative report 09/20 Craniotomy for Acute subdural hematoma Evacuation H&P p2 09/20 Neuro Monitoring Admited to ICU (This form is maintained as a part of the permanent medical record) 2014 [employer]. All Rights Reserved [email or web address] [not provided] MTDD
--- NOTE | 2019-10-01 17:29 | PQF ---
DELONTE LAGUNAS JASON MD [id number] U-C08 [id number] CLINICAL DOCUMENTATION CLARIFICATION FORM: POST DISCHARGE Addendum to original discharge summary date: ____ Late entry note date: __ DATE: 10/01/2019 ATTN: Sean Ding Please exercise your independent, professional judgment in responding to the clarification form. Clinical indicators are provided on the bottom of this form for your review Please check appropriate box(s): [ ] Traumatic Cerebral edema / Vasogenic edema [ ] Traumatic Compression of brain [ ] Non-Traumatic Cerebral edema / Vasogenic edema [ ] Non-Traumatic Compression of brain [ ] Other diagnosis [ ] Unable to determine In addition, please specify: Present on Admission (POA): [ ] Yes [ ] No [ ] Unable to determine For continuity of documentation, please document condition throughout progress notes and discharge summary. Thank You. CLINICAL INDICATORS - SIGNS / SYMPTOMS / LABS H&P p1 09/20 Mayte KING s/p fall with acute on chronic subdural hematoma H&P p1 09/20 Mayte KING Apparently. Earlier tonight the patient's was pushing her in the wheelchair when the wheelchair caught on something and the patient fell out of the wheelchair H&P p1 09/20 Mayte KING There was mass effect and midline shift on the repeat CT scan H&P p1 09/20 Mayte KING GCS was E1 M5 V1 RISK FACTORS H&P p1 09/20 79 year-old female H&P p1 09/20 Normal pressure hydrocephalus s/p COMMITTEE MEMBER shunt H&P p1 09/20 Afib on Eliquis TREATMENTS: Operative report 09/20 Craniotomy for Acute subdural hematoma Evacuation H&P p2 09/20 Neuro Monitoring Admired to ICU (This form is maintained as a part of the permanent medical record) 2014 [employer]. All Rights Reserved [email or web address] [not provided] MTDD
== END 2019-09-25 18:16 | disposition expired | DRG 25 ==
LOC: ERS 22:22 → CCU 09-20 00:17
PROVIDERS: ADMIT Surgery; ATTEND Surgery
PROC: 00C40ZZ Extirpation of Matter from Intracranial Subdural Space, Open Approach (ICD-10-PCS; principal; 2019-09-20)
PROC: 5A1955Z Respiratory Ventilation, Greater than 96 Consecutive Hours (ICD-10-PCS; 2019-09-20)
DX: J96.01 Acute respiratory failure with hypoxia; J18.9 Pneumonia, unspecified organism; G40.101 Localization-related (focal) (partial) symptomatic epilepsy and epileptic syndromes with simple partial seizures, not intractable, with status epilepticus; E87.1 Hypo-osmolality and hyponatremia; G91.2 (Idiopathic) normal pressure hydrocephalus; R40.2342 Coma scale, best motor response, flexion withdrawal, at arrival to emergency department; R40.2112 Coma scale, eyes open, never, at arrival to emergency department; R40.2212 Coma scale, best verbal response, none, at arrival to emergency department; Z66 Do not resuscitate; Z51.5 Encounter for palliative care; E87.6 Hypokalemia; E78.5 Hyperlipidemia, unspecified; I48.0 Paroxysmal atrial fibrillation; K21.9 Gastro-esophageal reflux disease without esophagitis; E66.9 Obesity, unspecified; G20 Parkinson's disease; F02.80 Dementia in other diseases classified elsewhere, unspecified severity, without behavioral disturbance, psychotic disturbance, mood disturbance, and anxiety; W05.0XXA Fall from non-moving wheelchair, initial encounter; Z78.1 Physical restraint status; Z79.01 Long term (current) use of anticoagulants; Z68.37 Body mass index [BMI] 37.0-37.9, adult; Z88.1 Allergy status to other antibiotic agents
CPT/HCPCS: 36415; 36416; 70450; 71045; 80048; 80053; 80185; 82805; 83036; 83735; 85025; 85610; 85730; 86850; 86900; 86901; 87040; 87070; 87086; 87205; 93005; 93010; 93970; 94002; 94003; 96365; 96366; 96368; 99292; A4218; C1713; C9113; J0282; J1815; J1940; J1953; J1956; J2001; J2060; J2248; J2270; J2704; J3010; J3370; J3475; J3480; J3490; J7050; J7070; Q2009